=== PATIENT | female | born 1955 | race Caucasian/White ===

== ENCOUNTER 2017-08-24 14:46 | Inpatient (IN) | payer OTHER ==
[~2017-08-24] VITALS: Ht 157.5 cm; Wt 63.2 kg
[~2017-08-24 14:46] MED LIST: ACET-2619 PO; ATRN INH; CALC-46 PO; CHLOR MM; DOCU50SO1 GT; HEPA500056 SUBQ; LEVE100S PO; LEVO0.124 GT; MER500I IV; MULT5SOL7 GT; OMEP20EC6 GT; PRON INH; [UNRECOGNIZED DRUG - CODE] IV
[2017-08-24 15:05] VITALS: BP 132/52
--- NOTE | 2017-08-24 15:05 | NUR ---
PT BROUGHT TO ED FOR TACHYCARDIA AND PLACED ON CARESCAPE VENT SETTINGS AC 12 VT400 PEEP 5 FIO2 40% SXN LARGE AMT OF THICK WHITE SECRETIONS FOR C&S B\S ARE RHONCHI BILATERALLY PT IS TRACH WITH PORTEX 8 AND SKIN INTEGRITY IS INTACT, ALARMS ON AND FUNCTIONING PROPERLY AMBU BAG AT SIDE OF VENT AND VENT IS PLUGGED INTO RED OUTLET.PT IS AWAKE
[2017-08-24 15:09] VITALS: BP 132/52
--- NOTE | 2017-08-24 15:09 | NUR ---
Note undone in [facility] - 08/24/17 at 1826 by [email or web address] 62F [place] [facility] [place] WBC=42.2 WITH FEVERS. HX--CHRONIC RESP FAILURE, DM, G-TUBE, VENT DEPENDENT, QUADRAPLEGIC .AX--VANCOMYCIN. BED SORE AT [facility] PT ACT NEUROLOGIACL BASELINE. LUNGS CLEAR BL; PATIENT POSITIONED FOR COMFORT; HOB ELEVATED; BEDRAILS UP X2; BED DOWN. ER MADE AWARE OF PT STATUS. Addendum: 08/24/17 at 1738 by [email or web address] Amendment undone in [facility] - 08/24/17 at 182 by [email or web address] PT ON VENT FIO2 100, MV 9.6, PEEP 4, LACY 30, TV 422, RR 27.
[2017-08-24] MEDS ORDERED: ACETAMINOPHEN 650 MG SUPP RC ONE (16:01)
--- NOTE | 2017-08-24 16:06 | NUR ---
62F BIBA FROM [facility] FOR ABNORMAL LAB, WBC=42.2 WITH FEVERS. HX--CHRONIC RESP FAILURE, DM, G-TUBE, VENT DEPENDENT, QUADRAPLEGIC .AX--VANCOMYCIN. BED SORE AT [facility]. PT ACT NEUROLOGIACL BASELINE. LUNGS CLEAR BL; PATIENT POSITIONED FOR COMFORT; HOB ELEVATED; BEDRAILS UP X2; BED DOWN. ER MD MADE AWARE OF PT STATUS.
--- NOTE | 2017-08-24 16:06 | NUR ---
Note andrzejone in EDM - 08/24/17 at 1733 by [email or web address] MarcelinoF [place] [facility] [place] WBC=42.2 WITH FEVERS. HX--CHRONIC RESP FAILURE, DM, G-TUBE, VENT DEPENDENT, QUADRAPLEGIC .AX--VANCOMYCIN.
[2017-08-24 16:15] LABS: HEMOGLOBIN 11.1 g/dL (12.0-16.0); MEAN CORPUSCULAR HEMOGLOBIN 27 pg (27-31); MEAN CORPUSCULAR HGB CONC 33 g/dL (33-37); MEAN CORPUSCULAR VOLUME 82 fL (80-94); PLATELET COUNT (AUTO) 305 K/uL (140-450); RED BLOOD CELL COUNT(AUTO) 4.13 MIL/uL (4.20-5.40); RED CELL DISTRIBUTION WIDTH 15.3 % (11.6-13.7)
--- NOTE | 2017-08-24 16:16 | NUR ---
SNX PT LARGE AMT OF THICK WHITE SECRETIONS, INCREASED FIO2 TO 100% PT DESAT TO 85%
[2017-08-24 16:22] LABS: PROTHROMBIN TIME 11.6 secs (10.8-13.4)
[2017-08-24 16:27] LABS: WHITE BLOOD COUNT (AUTO) 33.1 K/uL (4.8-10.8)
[2017-08-24] MEDS ORDERED: cefTRIAXone 1,000 MG VIAL ONE (16:30)
[2017-08-24 16:34] VITALS: BP 120/81
--- NOTE | 2017-08-24 16:34 | NUR ---
VENT CHECK, SXN PT LARGE AMT OF WHITE SECRETIONS, B\S ARE RHONCHI AND AIRWAY IS PATENT
[2017-08-24 16:39] LABS: ALBUMIN 2.1 g/dL (3.4-5.0); ANION GAP 14.1 (8-16); CARBON DIOXIDE 29.2 mmol/L (21-32); CREATININE 1.4 mg/dL (0.6-1.3); POTASSIUM 5.3 mmol/L (3.5-5.1); TOTAL BILIRUBIN 0.3 mg/dL (0.0-1.0)
[2017-08-24 16:41] LABS: LYMPHOCYTES % (MANUAL) 4 % (20-46); MONOCYTES % (MANUAL) 3 % (5-12); MYELOCYTES % 1 % (0-0)
[2017-08-24] MEDS ORDERED: NACL 0.9% 1,000 ML IV ONE ×2 (17:05→19:45)
[2017-08-24 17:28] LABS: APPEARANCE,URINE SL CLOUDY (CLEAR); BILIRUBIN,URINE NEGATIVE (NEGATIVE); BLOOD, URINE 2+ (NEGATIVE); COLOR,URINE YELLOW (YELLOW); LEUKOCYTE ESTERASE ,URINE 3+ (NEGATIVE); NITRITE, URINE NEGATIVE (NEGATIVE); UGLUCOSE NEGATIVE (NEGATIVE)
[2017-08-24 17:37] LABS: RBC,URINE 11-20 (MOD) /HPF (0-5); WBC,URINE 80-100 /HPF (0-5)
[2017-08-24] MEDS ORDERED: ONDANSETRON 4 MG/2 ML VIAL IVP PRN (18:05)
[2017-08-24] MEDS ORDERED: ACETAMINOPHEN 325 MG TAB PO PRN (18:05)
[2017-08-24] MEDS ORDERED: HYDROcodone/APAP 7.5/325 MG 1 TAB PO PRN (18:05)
[2017-08-24 18:37] LABS: CHOL/HDL RATIO 3.9 (1-4.5); FREE T4 (FREE THYROXINE) 1.53 ng/dL (0.76-1.46); MAGNESIUM 2.1 mg/dL (1.8-2.4); THYROID STIMULATING HORMONE 0.17 uIU/mL (0.34-3.74)
--- NOTE | 2017-08-24 18:55 | NUR ---
Patient ON VENT ; appears to be resting comfortably in bed. Vital Signs within normal limits. Respirations even and unlabored.WILL CONTINUE TO MONITOR.
--- NOTE | 2017-08-24 19:09 | NUR ---
Patient will be admitted to care of DR AMADOR. Admited to TELE. Will go to [id number]. Belongings list completed. Report to VICTOR HUGO.
[2017-08-24 19:20] VITALS: BP 82/55
--- NOTE | 2017-08-24 19:20 | NUR ---
PT ARRIVED IN THE UNIT FROM ER VIA GURNEY, PT STABLE, NO DISTRESS NOTED, IV TO L HAND 24G SL, PT TRANSPORTED VIA AMBU BAG, PT ON VENT WITH FIO2 OF 40, GARCIA IN PLACE DRAINING YELLOW URINE WITH SEDIMENT, INITIAL ASSESSMENT DONE, ALL SAFETY PRECAUTION MET, WILL CONTINUE TO MONITOR.
--- NOTE | 2017-08-24 19:20 | NUR ---
TRANSFER PT VIA AMBU BAG FROM ER TO 123B, NO DISTRESS NOTED OR RESP DISTRESS NOTED
--- NOTE | 2017-08-24 20:05 | NUR ---
PT BP 82/55, PT ASYMPTOMATIC, NO DISTRESS NOTED, NOTIFIED DR. ROLDAN, WILL ORDER NS 1L BOLUS, WILL CONTINUE WITH ORDERS.
[2017-08-24] MEDS ORDERED: [UNRECOGNIZED DRUG - CODE] GT (20:28)
[2017-08-24] MEDS ORDERED: INSU100S45 SUBQ (20:28)
[2017-08-24] MEDS ORDERED: ASPI81CT89 GT (20:28)
[2017-08-24] MEDS ORDERED: ATI.5 GT (20:28)
[2017-08-24] MEDS ORDERED: POTA10TE30 GT (20:28)
[2017-08-24] MEDS ORDERED: METO25TA GT (20:28)
[2017-08-24] MEDS ORDERED: LORazepam 0.5 MG TAB GT PRN (20:30)
[2017-08-24] MEDS ORDERED: DEXTROSE 50% 50 ML SYR IVP PRN (20:35)
[2017-08-24] MEDS: NYSTATIN POW 100 MU/GM 15 GM BTL TP SCH (21:00)
[2017-08-24] MEDS ORDERED: SODIUM POLYSTYRENE 15 GM/60 ML UDBTL GT SCH (21:00)
[2017-08-24] MEDS ORDERED: METOPROLOL 25 MG TAB GT SCH (21:00)
[2017-08-24] MEDS ORDERED: DOCUSATE SODIUM 100 MG GELCAP PO SCH (21:00)
[2017-08-24] MEDS ORDERED: ALBUTEROL SULFATE/IPRATROPIU 3 ML SOL IH PRN (21:10)
[2017-08-24] MEDS: FAMOTIDINE 20 MG/2 ML VIAL IV SCH (21:22)
[2017-08-24] MEDS: levETIRAcetam 100 MG/ML ORASYR GT SCH (21:24)
[2017-08-24 21:35] VITALS: BP 104/52
--- NOTE | 2017-08-24 21:35 | NUR ---
RECHECKED BP, BP 104/52 AT THIS MOMENT, PT STABLE, NO DISTRESS NOTED, CALL LIGHT WITHIN REACH, WILL CONTINUE TO MONITOR.
[2017-08-24] MEDS: BLOOD GLUCOSE MONITORING 1 DEV DEV FS SCH (21:39)
--- NOTE | 2017-08-24 22:27 | NUR ---
PT PO2 86%, PT ASYMPTOMATIC, CALM, ATTEMPT TO SUCTION, NO CHANGES, CALLED RT TO NOTIFY PT CONDITION, RT STATED THAT HE WILL COME TO CHECK ON THE PT.
--- NOTE | 2017-08-24 22:30 | NUR ---
CALLED BY NURSE SAO2 86% CHANGED PULSE OX FINGER PROBE,LAVAGED WITH SALINE AND SUCTIONED, INCREASED FIO2 TO 60% SAO2 -97% . WILL KEEP FIO2 At 60% DURING THE NIGHT
[2017-08-24] MEDS: NACL 0.9% 1,000 ML IV SCH (22:45)
[2017-08-24] MEDS: LEVOFLOXACIN 750 MG/D5W PREMIX 150 ML IV SCH (22:51)
[2017-08-25] VITALS: BP 133/59
--- NOTE | 2017-08-25 00:30 | NUR ---
NOTIFIED DR ROLDAN REGARDING PT HR 140, DR STATED UNDERSTANDING. PT STABLE, NO DISTRESS NOTED, WILL CONTINUE TO MONITOR.
[2017-08-25] MEDS ORDERED: CLINDAMYCIN 600 MG/4 ML VIAL ONE ×2 (01:12→05:20)
[2017-08-25] MEDS: CLINDAMYCIN 600 MG in DEXTROSE 5% 50 ML IV SCH ×4 (01:14→18:44)
[2017-08-25] MEDS: ACETAMINOPHEN 325 MG SUPP RC PRN (01:14)
--- NOTE | 2017-08-25 01:14 | NUR ---
CHECKED PT TEMP, 101.4, TYLENOL GIVEN, PT TOLERATED WELL, PO2 AT 86%, SUCTIONED PT AND CALLED RT, PT CALM NO DISTRESS NOTED, CALL LIGHT WITHIN REACH WILL CONTINUE TO MONITOR.
--- NOTE | 2017-08-25 01:46 | NUR ---
PT DESAT. TO 85%, INCREASED FIO3 TO 80%
[2017-08-25] MEDS: NACL 0.9% 1,000 ML IV SCH ×3 (02:00→18:47)
--- NOTE | 2017-08-25 02:11 | NUR ---
RECHECKED PT TEMP 99.6, PT STABLE, NO DISTRESS NOTED, CALL LIGHT WITHIN REACH, WILL CONTINUE TO MONITOR.
[2017-08-25 04:00] VITALS: BP 101/75
--- NOTE | 2017-08-25 04:28 | NUR ---
CHECKED ON PT, PT PO2 SAT 87%, NOTIFY RT, NO DISTRESS NOTED, WILL CONTINUE TO MONITOR.
--- NOTE | 2017-08-25 04:30 | NUR ---
SAO2 DECREASED TO 87%, INCREASED FIO2 TO 100% SUCTIONED/LAVAGED SMALL AMTS OF YELLOW SECRETIONS. DR. ROLDAN IS MADE AWARE
[2017-08-25] MEDS: LEVOTHYROXINE 0.1 MG TAB GT SCH (05:43)
[2017-08-25] MEDS: LEVOTHYROXINE 0.025 MG TAB GT SCH (05:43)
[2017-08-25 06:28] LABS: HEMATOCRIT 28.7 % (36-48); HEMOGLOBIN 9.5 g/dL (12.0-16.0); MEAN CORPUSCULAR HEMOGLOBIN 27 pg (27-31); MEAN CORPUSCULAR HGB CONC 33 g/dL (33-37); MEAN CORPUSCULAR VOLUME 82 fL (80-94); PLATELET COUNT (AUTO) 203 K/uL (140-450); RED BLOOD CELL COUNT(AUTO) 3.48 MIL/uL (4.20-5.40); RED CELL DISTRIBUTION WIDTH 15.2 % (11.6-13.7); WHITE BLOOD COUNT (AUTO) 23.2 K/uL (4.8-10.8)
[2017-08-25] MEDS ORDERED: LEVOTHYROXINE 0.075 MG TAB GT SCH (06:30)
[2017-08-25] MEDS: BLOOD GLUCOSE MONITORING 1 DEV DEV FS SCH ×4 (06:56→21:08)
[2017-08-25] MEDS: ALBUTEROL SULFATE/IPRATROPIU 3 ML SOL IH SCH ×3 (07:07→19:04)
--- NOTE | 2017-08-25 07:07 | NUR ---
RECEIVED PT ON CARESCAPE ON AC 12 VT400 PEEP5 FIO2 100 ALARMS ARE ON AND FUNCTIONAL BMV HOB PTS TRACH PORTEX 8 IS SECURE PT IN HF QUIET BS COARSE I\ LAVAGE AND SX COPIOUS WHITE HHN GIVEN WITH NEW SET UP WITH 3 MG DUONEB CONT POX IN PLACE NO APPARENT DISTRESS VENT PLUGGED INTO RED OUTLET
--- NOTE | 2017-08-25 07:20 | NUR ---
ENDORSED PT TO DAY SHIFT NURSE GONZALO OROPEZA, PT STABLE, NO DISTRESS NOTED, CALL LIGHT WITHIN REACH.
--- NOTE | 2017-08-25 07:21 | NUR ---
RECEIVED REPORT FROM SPUD SORTER NURSE AT BEDSIDE FOR CONTINUITY OF CARE. PATIENT WITH MECHANICAL VENT FIO2 SET AT 100%, RESPIRATIONS AT 25, TRACH TO VENT WITH DRY DRESSING WITHOUT NOTABLE DRAINAGE. GTUBE PATENT AND INTACT. NO RESIDUAL. AUSCULTATED FOR PLACEMENT. PATIENT NOTED WITH NON PITTING EDEMA TO BUE AND BLE. PATIENT WITH IV TO RIGHT AC 24G WITH NS @126CC/HR. PATIENT DOES NOT CURRENTLY HAVE A FEEDING FORMULA AWAITING MD ORDER. PT ON CONTACT ISOLATION FOR MDRO, PATIENT APHASIC. WITH EYES OPEN. HOLD RIGHT ARM TIGHT AGAINST BODY. PATIENT WITH FC. DRAINING YELLOW URINE WITH SOME CLOUDINESS. SPUD SORTER NURSE REPORTED LBM1/. PER SPUD SORTER NURSE PATIENT HAS PRESSURE ULCERS TO SACRAL AREA WITH DRESSING. PT WITH SCDS IN PLACE. WILL CONT TO MONITOR
[2017-08-25 07:36] LABS: PHOSPHORUS 2.9 mg/dL (2.5-4.9)
[2017-08-25 07:57] LABS: ANION GAP 13.7 (8-16); CARBON DIOXIDE 28.3 mmol/L (21-32)
[2017-08-25 08:00] VITALS: BP 114/61
[2017-08-25 08:30] LABS: LYMPHOCYTES % (MANUAL) 6 % (20-46); MONOCYTES % (MANUAL) 3 % (5-12)
[2017-08-25] MEDS: DOCUSATE 100 MG/10 ML UDC GT SCH ×2 (08:55→21:10)
[2017-08-25] MEDS: METOPROLOL 50 MG TAB GT SCH ×2 (08:56→21:00)
[2017-08-25] MEDS: CALCIUM CARB/VIT-D 500 MG/200 IU 1 TAB GT SCH (08:56)
[2017-08-25] MEDS: LACTOBACILLUS RHAMNOSUS GG 1 EACH CAP PO SCH (08:56)
--- NOTE | 2017-08-25 08:56 | NUR ---
VENT CHECK, NO SXN REQUIRED AT THIS TIME, AIRWAY IS PATENT AND PT IS RESTING
[2017-08-25] MEDS: ASPIRIN 81 MG TAB.CHEW GT SCH (08:57)
[2017-08-25] MEDS: MULTIVITAMIN 5 ML ORASYR GT SCH (08:57)
[2017-08-25] MEDS: levETIRAcetam 100 MG/ML ORASYR GT SCH ×2 (08:58→21:10)
[2017-08-25] MEDS ORDERED: POTASSIUM CHLORIDE 20% 40 MEQ/15 ML UDC GT SCH (09:00)
--- NOTE | 2017-08-25 09:06 | NUR ---
ADMINISTERED MORNING MEDS. CHECKED FOR PLACEMENT, RESIDUAL, AND PATENCY. TOTAL FLUIDS INCLUDING MEDS AND FLUSH 240ML. PT TOLERATED WELL. SUCTIONED PT. PT FOAMING AT THE MOUTH. ADMINISTERED PUMP FOR THE WOUND CARE BED. WILL CONTINUE TO MONITOR PT.
[2017-08-25] MEDS: HYDRAGUARD CREAM TP SCH (09:33)
[2017-08-25] MEDS: NYSTATIN POW 100 MU/GM 15 GM BTL TP SCH ×2 (09:34→21:00)
--- NOTE | 2017-08-25 10:39 | NUR ---
RADIOLOGIST AT BEDSIDE. PATIENT AWAKE WITH EYES OPENED. NO ACUTE DISTRESS NOTED. FLACC 0. NO FACIAL GRIMACING. WILL CONT TO MONITOR
--- NOTE | 2017-08-25 10:46 | NUR ---
snx pt moderate amt of white secretions, changed water Addendum: 08/25/17 at 1046 by Katalina Smith RT wrong pt
--- NOTE | 2017-08-25 11:18 | NUR ---
DECREASE FIO2 TO 80 SPO2 99
[2017-08-25 12:00] VITALS: BP 98/59
--- NOTE | 2017-08-25 13:08 | NUR ---
vent check, i\l tx given with duoneb 3ml with no adverse reaction post tx b\s coarse and sxn pt small amt of white secretions pt is resting
--- NOTE | 2017-08-25 13:55 | NUR ---
PT DESAT TO 82 INCREASE FIO2 TO 100 SX LG WHITE
--- NOTE | 2017-08-25 14:44 | NUR ---
08/25/2017 RD INITIAL ASSESSMENT COMPLETED PLEASE REFER TO NUTRITION ASSESSMENT UNDER CARE ACTIVITY FOR ESTIMATED NUTRITIONAL NEEDS. CONSIDER: FIBERSOURCE HN @ 60 ML/HR FROM NOON TO 8AM. THIS WILL PROVIDE 1440 KCALS AND 65 GM PRO/DAY TO MEET 100% ESTIMATED ENERGY AND PROTEIN NEEDS . RD TO FOLLOW-UP IN 2-3 DAYS PATIENT IS HIGH RISK. GRZEGORZ [address]ERSON RD Addendum: 08/25/17 at [address] SPOKE WITH DR. FIELDS, DISCUSSED RECOMMENDATION TO INCREASE TF RATE, DR. FIELDS STATED HE WILL UPDATE DIET ORDER
--- NOTE | 2017-08-25 15:10 | NUR ---
vent check no sxn needed at this time airway is patent and pt is sleeping
--- NOTE | 2017-08-25 15:13 | NUR ---
DR. FIELDS CANCELLED THE VQ SCAN. THE HUMAN FACTORS ADVISOR LEAD WAS HERE AND REALIZED PT WAS ON A VENT. CALLED R/T TO ASSIST WITH TRANSFER TO [facility]. PT IS UNABLE TO KEEP ARMS UP ABOVE HER HEAD D/T TO THE CONTRACTION OF R ARM. AGREED THAT IT OK TO CANCEL.
[2017-08-25 16:00] VITALS: BP 118/49
--- NOTE | 2017-08-25 16:31 | NUR ---
Steel Die Engraver Note: I call [facility] and spoke to Ramona about patient family contact, gather information, and provided update on patients status. Per Ramona Patient is on a [facility]; and will be able to return to [facility] facility when patient is clear and stable. I thank Ramona (staff) and ended call.
--- NOTE | 2017-08-25 16:35 | NUR ---
REQUESTED FEEDING PUMP FROM [employer]. STARTED TUBE FEEDING. FIBERSOURCE 45ML/HR TO START, FLUSH H20 325ML Q 6 HRS. PER ORDERS, WILL CHECK IN 1 HR FOR RESIDUAL TO SEE IF PT IS TOLERATING WELL.
--- NOTE | 2017-08-25 16:53 | NUR ---
VENT CHECK, SXN PT MODERATE AMT OF YELLOW SECRETIONS TRACH CARE DONE: CHANGED TRACH GAUZE
--- NOTE | 2017-08-25 18:49 | NUR ---
CHECKED GTUBE RESIDUAL AND PULLED BACK 30ML UNTIL RESISTANCE WAS MET.PATIENT WITH EYES OPEN. APHASIC. NO ACUTE DISTRESS NOTED. FLACC OF 0. WILL CONT TO MONITOR
--- NOTE | 2017-08-25 19:16 | NUR ---
RECEIVED PT STABLE ON VENT SUPPORT AT DOCUMENTED SETTINGS, SUCTIONED MODERATED AMOUNTS OF CREAMY YELLOW THICK SECRETIONS, HHN TX GIVEN, TOLERATED WELL, NO RESP DISTRESS OR SOB NOTED AT THIS TIME, PORTEX 8 TRACH SECURED/MIDLINE/PATENT, ALARMS SET AND AUDIBLE, CONT PULSE OX ON, AMBU BAG AT BEDSIDE, VENT PLUGGED INTO RED OUTLET, WILL CONT TO MONITOR.
--- NOTE | 2017-08-25 19:18 | NUR ---
ENDORSED REPORT TO CHIEF TECHNICIAN X RAY NURSE FOR CONTINUITY OF CARE.
--- NOTE | 2017-08-25 19:19 | NUR ---
RECEIVED BEDSIDE REPORT FROM DAY SHIFT NURSE KAVEH RN, PT STABLE, NO DISTRESS NOTED, IV TO L WRIST 24G RUNNING NS @126ML/HR, INFUSING WELL, PT ON TRACHE TO VENT, NO SOB NOTED, O2 SATURATION AT 98%, GARCIA IN PLACE DRAINING YELLOW URINE WITH SEDIMENTS, DRESSING IN PLACE, INITIAL ASSESSMENT DONE, ALL SAFETY PRECAUTION MET, WILL CONTINUE TO MONITOR.
[2017-08-25 20:00] VITALS: BP 109/51
[2017-08-25] MEDS: FAMOTIDINE 20 MG/2 ML VIAL IV SCH (21:10)
--- NOTE | 2017-08-25 21:10 | NUR ---
DUE MEDICATION GIVEN, PT TOLERATED WELL, NO DISTRESS NOTED, CALL LIGHT WITHIN REACH, WILL CONTINUE TO MONITOR.
--- NOTE | 2017-08-25 23:10 | NUR ---
CHECKED ON PT, REPOSITIONED PT, PT TOLERATED WELL, NO DISTRESS NOTED, CALL LIGHT WITHIN REACH,
[2017-08-26] VITALS (14 sets, daily range): BP systolic 0–137; BP diastolic 0–79
[2017-08-26] MEDS: CLINDAMYCIN 600 MG in DEXTROSE 5% 50 ML IV SCH ×5 (00:06→23:30)
--- NOTE | 2017-08-26 00:06 | NUR ---
DUE MEDICATION GIVEN, PT TOLERATED WELL, NO DISTRESS NOTED, CALL LIGHT WITHIN REACH, WILL CONTINUE TO MONITOR.
[2017-08-26] MEDS: NACL 0.9% 1,000 ML IV SCH ×3 (01:58→17:24)
--- NOTE | 2017-08-26 02:10 | NUR ---
ADVANCED G TUBE FEEDING TO 60 ML/HR PT TOLERATED WELL, RESIDUAL 5ML.
[2017-08-26] MEDS: ACETAMINOPHEN 325 MG SUPP RC PRN (03:53)
--- NOTE | 2017-08-26 03:53 | NUR ---
PT TEMP 101.5, TYLENOL PRESCRIBED GIVEN, PT TOLERATED WELL, WILL CHECK TEMP IN HALF AN HOUR
--- NOTE | 2017-08-26 04:23 | NUR ---
RECHECKED PT TEMPERATURE, 99.0, PT RESTING, NO DISTRESS NOTED, CALL LIGHT WITHIN REACH, WILL CONTINUE TO MONITOR.
[2017-08-26] MEDS: LEVOTHYROXINE 0.1 MG TAB GT SCH (05:52)
[2017-08-26] MEDS: LEVOTHYROXINE 0.025 MG TAB GT SCH (05:52)
--- NOTE | 2017-08-26 05:52 | NUR ---
DUE MEDICATION GIVEN, PT TOLERATED WELL, NO DISTRESS NOTED, CALL LIGHT WITHIN REACH, WILL CONTINUE TO MONITOR.
[2017-08-26] MEDS: BLOOD GLUCOSE MONITORING 1 DEV DEV FS SCH ×4 (06:04→20:57)
[2017-08-26 06:11] LABS: HEMATOCRIT 23.4 % (36-48); HEMOGLOBIN 7.5 g/dL (12.0-16.0); MEAN CORPUSCULAR HEMOGLOBIN 27 pg (27-31); MEAN CORPUSCULAR HGB CONC 32 g/dL (33-37); MEAN CORPUSCULAR VOLUME 84 fL (80-94); PLATELET COUNT (AUTO) 172 K/uL (140-450); RED CELL DISTRIBUTION WIDTH 15.6 % (11.6-13.7); WHITE BLOOD COUNT (AUTO) 14.3 K/uL (4.8-10.8)
[2017-08-26 06:21] LABS: ANION GAP 11.8 (8-16); CARBON DIOXIDE 28.6 mmol/L (21-32); CREATININE 0.8 mg/dL (0.6-1.3)
[2017-08-26 06:22] LABS: POTASSIUM 2.4 mmol/L (3.5-5.1)
--- NOTE | 2017-08-26 06:25 | NUR ---
RECEIVED CRITICAL VALUE REPORT OF POTASSIUM 2.4, CALLED , STATED UNDERSTANDING, WILL COME AND SEE THE PATIENT AND PUT IN ORDERS LATER.
[2017-08-26 06:49] LABS: LYMPHOCYTES % (MANUAL) 8 % (20-46)
[2017-08-26 06:50] LABS: EOSINOPHILS % (MANUAL) 3 % (0-4); MONOCYTES % (MANUAL) 4 % (5-12)
--- NOTE | 2017-08-26 07:14 | NUR ---
ENDORSED PLAN OF CARE TO DAY SHIFT NURSE CABRERA RN, PT STABLE, NO DISTRESS NOTED, CALL LIGHT WITHIN REACH.
--- NOTE | 2017-08-26 07:15 | NUR ---
REPORT RECIEVED FROM CAMPUS RECEPTIONIST NURSE, PT WITH EYES OPEN, DOES NOT RESPOND VERBALLY AT BASE LINE, PT APPEARS COMFORTABLE IN NO PAIN, RESP EVEN UNLABORED WITH TRACH TO VENT, SKIN WARM DRY COLOR WNL, O2 SAT 96-96%, IVF INFUSING WELL, SITE WNL, GT FEEDING ONGOING, PLAN OF CARE REVIEWED, SIDE RAILS UP, BED LOCKED IN LOW POSITION, ALL ALARMS ON, WILL CONTINUE TO MONITOR.
[2017-08-26] MEDS: ALBUTEROL SULFATE/IPRATROPIU 3 ML SOL IH SCH ×3 (07:58→19:15)
--- NOTE | 2017-08-26 07:58 | NUR ---
RECEIVED ON A [employer] USSCAPE R860 VENTILATOR PLUGGED INTO RED OUTLET TOLERATING WELL WITHOUT ADVERSE REACTIONS NOTED TO A PORTEX DCT #8 AIRWAY CUFF PRESSURE CHECKED NOTED AMBU BAG NOTED AT HOB LOC AWAKE NO PULMONARY DISTRESS NOTED BREATH SOUNDS RHONCHI BILATERAL GOOD CHEST RISE DEP TRACHEAL SUCTION FOR LARGE THICK YELLOW SECRETIONS AIRWAY PATENT
[2017-08-26] MEDS ORDERED: KCL 20 MEQ/WATER INJ PREMIX 200 ML IV SCH (08:00)
--- NOTE | 2017-08-26 08:45 | NUR ---
RT AT BEDSIDE.
--- NOTE | 2017-08-26 08:50 | NUR ---
WOUND CARE EVALUATION NOTE: REASON FOR EVALUATION: PRESSURE ULCER INJURY STAGE 2 COMPLETE SKIN ASSESSMENT DONE ON THIS 62 Y/O FEMALE PATIENT [place] [facility] [place] [facility], WITH INITIAL DIAGNOSIS OF FEVER AND LEUKOCYTOSIS. PAST MEDICAL HISTORY INCLUDE GUADRIPLEGIA, CHRONIC RESPIRATORY FAILURE, COPD AND DM. ALL ABOVE INFORMATION OBTAINED FROM THE ADMISSION H&P. LABS ARE WBC 23.2, H/H 9.5/28.7, GLUCOSE 175 AND ALBUMIN 2.1. SKIN WARM TO TOUCH WNL, SKIN TURGOR GOOD. CAPILLARY REFILLED <3 SEC. TOENAILS ARE SHORT AND THICKENED, NO HAIR GROWTH, BILATERAL DORSAL PEDAL PULSES PRESENT. INITIAL PLAN OF CARE DISCUSSED WITH PRIMARY RN. INTEGUMENTARY: TRACH IN PLACE, NANI STOMA SKIN DRY AND INTACT RUQ GT IN PLACE, NANI STOMA SKIN DRY AND INTACT MID ABDOMEN OLD HEALED SCAR, L/R MEDIAL KNEE OLD HEALED SCARS SACRALCOCCYX PRESSURE ULCER INJURY STAGE 2, 2X1X0.1, WOUND BED DRY AND PINK IN COLOR, PERIWOUND PALE PINK RE-EPITHELIUM TISSUE DRY AND CLEAN. BILATERAL LOWER EXTREMITIES -DRYNESS LEFT AND RIGHT HEELS- BLANCHABLE REDNESS RECOMMENDATIONS: -CLEANSE SACRALCOCCYX WITH SOAP AND WATER, PAT DRY, APPLY HYDROGEL TO WOUND BED AND HYDROGUARD TO NANI WOUND, COVER WITH DRY DRESSING QD AND PRN IF SOILING -TURN AND REPOSITION PATIENT Q 2H -ASSESS AND MONITOR SKIN CONDITION DURING POSITION CHANGE, PLEASE PAY PARTICULAR ATTENTION HEELS -OFFLOAD BILATERAL HEELS BY PLACING PILLOWS UNDER CALVES AT ALL TIMES, UNLESS OTHERWISE CONTRAINDICATED -PRESSURE REDISTRIBUTION SURFACE THERAPY -KEEP SKIN CLEAN AND DRY AT ALL TIMES. MAY APPLY BODY LOTION TO DRYNESS AREA. RECOMMENDATIONS DISCUSSED WITH PRIMARY RN AND DR. RAMOS WILL FOLLOW UP PATIENT Q7- 10 DAYS AND PRN. PLEASE CONTACT WOUND CARE NURSE FOR ANY CONCERNS, QUESTIONS AND CHANGES IN SKIN CONDITION.
--- NOTE | 2017-08-26 09:06 | NUR ---
AWAKE STABLE NO SOB NOTED BREATH SOUNDS RHONCHI BILATERAL WITH GOOD CHEST RISE DEEP TRACHEAL SUCTION FOR LARGE THICK YELLOW SECRETIONS AIRWAY PATENT OROPHARYNX SUCTION FOR LARGE THICK PALE YELLOW TO CLEAR SECRETIONS Addendum: 08/26/17 at 0920 by Bridger Blanco RT SATURATION 99% ON FIO2 OF 60% TITRATED FIO2 TO 50% CABRERA/JOHNNA NOTIFIED
[2017-08-26] MEDS: DOCUSATE 100 MG/10 ML UDC GT SCH ×2 (09:26→20:57)
[2017-08-26] MEDS: LACTOBACILLUS RHAMNOSUS GG 1 EACH CAP PO SCH (09:26)
[2017-08-26] MEDS: MULTIVITAMIN 5 ML ORASYR GT SCH (09:27)
[2017-08-26] MEDS: ASPIRIN 81 MG TAB.CHEW GT SCH (09:28)
[2017-08-26] MEDS: METOPROLOL 50 MG TAB GT SCH ×2 (09:28→20:58)
[2017-08-26] MEDS: levETIRAcetam 100 MG/ML ORASYR GT SCH ×2 (09:28→20:58)
[2017-08-26] MEDS: HYDRAGUARD CREAM TP SCH (09:29)
[2017-08-26] MEDS: NYSTATIN POW 100 MU/GM 15 GM BTL TP SCH ×2 (09:29→21:15)
[2017-08-26] MEDS: CALCIUM CARB/VIT-D 500 MG/200 IU 1 TAB GT SCH (09:29)
--- NOTE | 2017-08-26 09:35 | NUR ---
RESIDUAL 3ML, AM MEDS GIVEN VIA G TUBE, SHAHIDA WELL, BED BATH GIVEN WITH 4TH GRADE MATH TEACHER SOLA, PERICARE DONE, POSITION CHANGED, FANI WOUND CARE NURSE AT BEDSIDE, DRESSING CHANGED, WILL CONTINUE TO MONITOR
--- NOTE | 2017-08-26 11:20 | NUR ---
AWAKE STBALE NO EVIENDCE OF PULMONARY DISTRESS NOTED BREATH SOUNDS RHONCHI BILATERAL GOOD CHEST RISE DEEP TRACHEAL SUCTION FOR MODERATE THICK YELLOW SECRETIONS AIRWAY PATENT
--- NOTE | 2017-08-26 11:40 | NUR ---
SATURATION 100% ON FIO2 OF 50% TITRATED FIO2 TO 40% CABRERA/RN NOTIFIED
--- NOTE | 2017-08-26 12:29 | NUR ---
NO EVIDENCE OF RESPIRATORY DISTRESS NOTED BREATH SOUNDS RHONCHI RIGHT SIDE TO CLEAR LEFT SIDE GOOD CHEST RISE DEEP TRACHEAL SUCTION FOR SMALL SEMI THICK YELLOW SECRETIONS AIRWAY PATENT MASIMO RADICAL-7 CONTINUOS PULSE OXIMTERY AT BEDSIDE ON AND FUNCTIONING WELL LOW SATURATION ALARM SET AT 92%
--- NOTE | 2017-08-26 14:05 | NUR ---
PT SLEEPING QUIELTY IN NAD, REDSP EVEN UNLABORED, SKIN WRM DRY COLRO WNL, IV SITE RETAPED, FLUSHES WELL, SITE WNL, IVF CONTINUES, GT FEED ON-GOING, GARCIA DRAINING WELL, POSITION CHAGNED, PERICARE DONE, WILL CONTINUE TO MONTIOR.
[2017-08-26 14:49] LABS: TRANSFERRIN 129 mg/dL (200 - 370)
[2017-08-26 15:13] LABS: FOLIC ACID > 20.00 ng/mL (>3.0)
--- NOTE | 2017-08-26 15:22 | NUR ---
AWAKE STABLE NO DISTRESS NOTED BREATH SOUNDS RHONCHI BILATERAL WITH GOOD CHEST RISE DEEP TRACHEAL SUCTION FOR MODERATE THIN YELLOW SECRETIONS AIRWAY PATENT SATURATION 100% ON FIO2 OF 40% TITRATED FIO2 TO 35% CABRERA/RN NOTIFIED
[2017-08-26 15:36] LABS: FERRITIN 299 ng/mL (15-150)
--- NOTE | 2017-08-26 17:02 | NUR ---
LEFT HAND IV LEAKING, DIFFICULT TO FLUSH, DC'D, CATH TIP INTACT, NEW IV 22G STARTED TO LFT FA, PT SHAHIDA WELL, FLUSHES WELL, SITE DRESSED AND SECURED, IVF RESUMED.
--- NOTE | 2017-08-26 17:54 | NUR ---
ASLEEP RESTING COMFORTABLY NO EVIDENCE OF PULMONARY DISTRESS NOTED GOOD CHEST RISE
[2017-08-26] MEDS ORDERED: FERRIC GLUCONATE 125 MG in NACL 0.9% 100 ML IV SCH (18:00)
--- NOTE | 2017-08-26 18:04 | NUR ---
SMALL BM, PERICARE DONE, POSITION CHANGED, PT SHAHIDA WELL, IV ANTIBIOTIC INFUSING, SITE CLEAR, WILL CONTINUE TO MONTIOR
--- NOTE | 2017-08-26 19:15 | NUR ---
REPORT GIVEN TO ACID SUPERVISOR NURSE, PT IN STABLE CONDITION.
--- NOTE | 2017-08-26 19:25 | NUR ---
RECEIVED PT IN STABLE CONDITION FROM AM NURSE. ON TELE MONITOR. BEDBOUND, APHASIC. ON TRACH TO VENT. O2SAT 98% ON FIO2 35%. RT JUST GAVE BREATHING TREATMENT. NO DISTRESS NOTED. ON CONTACT ISOLATION. WITH IVF INFUSING WELL ON THE LT FA #[id number]. CLEAR AND PATENT. HAS GT FEEDING . DISCONNECTED FROM THE TUBE. PT WAS CLEANED AND BED CHANGED. FEEDING CONTINUE AFTER CHECKED PLACEMENT. HAS GARCIA CATHETER TO GRAVITY, DRAINING WELL WITH CLEAR YELLOW URINE. SACRAL WOUND AREA WITH DRESSING,IN PLACED. BED ON LOW POSITION, FREQUENT ROUNDS NEEDED.HIGHWAY MAINTENANCE SUPERVISOR RAILS PADDED FOR SEIZURE PRECAUTION. WILL CLOSELY MONITOR PT.
[2017-08-26] MEDS: FAMOTIDINE 20 MG/2 ML VIAL IV SCH (20:57)
--- NOTE | 2017-08-26 20:57 | NUR ---
BLOOD SUGAR WAS CHECKED RESULT 127. NO INSULIN COVERAGE NEEDED.
[2017-08-26] MEDS: LEVOFLOXACIN 750 MG/D5W PREMIX 150 ML IV SCH (21:03)
--- NOTE | 2017-08-26 21:30 | NUR ---
PT IN NO DISTRESS NOTED. O2 SAT 97%. WILL CONTINUE TO MONITOR.
--- NOTE | 2017-08-26 22:30 | NUR ---
PT IN NO ACUTE RESPIRATORY DISTRESS NOTED. O2 SAT 98% AT THIS TIME. WILL CONTINUE TO MONITOR.
--- NOTE | 2017-08-26 23:40 | NUR ---
SUCTIONED PT'S MOUTH . OBTAINED SMALL AMOUNT SALIVA. MOUTH CARE DONE. NO DISTRESS NOTED. O2 SAT 97%.
--- NOTE | 2017-08-27 00:30 | NUR ---
REPOSITIONED PT FOR COMFORT. NO RESPIRATORY DISTRESS NOTED. WILL CONTINUE TO MONITOR.
[2017-08-27] MEDS: NACL 0.9% 1,000 ML IV SCH ×4 (01:42→23:09)
--- NOTE | 2017-08-27 02:30 | NUR ---
REPOSITIONED FOR COMFORT. SUCTIONED WITH MODERATE WHITISH /CREAMY SECRETIONS OBTAINED.
[2017-08-27 04:00] VITALS: BP 138/71
--- NOTE | 2017-08-27 04:30 | NUR ---
PT AWAKE. WITH A LOT OF SALIVA IN MOUTH. SUCTIONED THRU THE MOUTH AND ALSO THRU THE TRACH. O2 SAT 100% AFTER SUCTIONING.
[2017-08-27] MEDS: CLINDAMYCIN 600 MG in DEXTROSE 5% 50 ML IV SCH (05:24)
[2017-08-27] MEDS: LEVOTHYROXINE 0.025 MG TAB GT SCH (05:46)
[2017-08-27] MEDS: LEVOTHYROXINE 0.1 MG TAB GT SCH (05:47)
[2017-08-27] MEDS: BLOOD GLUCOSE MONITORING 1 DEV DEV FS SCH ×4 (05:56→20:39)
[2017-08-27 06:05] LABS: BASOPHILS % (AUTO) 0.3 % (0.0-2.0); EOSINOPHILS # (AUTO) 0.2 K/uL (0-0.4); EOSINOPHILS % (AUTO) 1.6 % (0.0-4.0); HEMATOCRIT 24.5 % (36-48); HEMOGLOBIN 7.7 g/dL (12.0-16.0); LYMPHOCYTES % (AUTO) 8.8 % (20.5-51.1); MEAN CORPUSCULAR HEMOGLOBIN 26 pg (27-31); MEAN CORPUSCULAR HGB CONC 31 g/dL (33-37); MEAN CORPUSCULAR VOLUME 83 fL (80-94); MONOCYTES # (AUTO) 0.9 K/uL (0.8-1.0); MONOCYTES % (AUTO) 7.5 % (1.7-9.3); NEUTROPHILS # (AUTO) 9.3 K/uL (1.8-7.7); NEUTROPHILS % (AUTO) 81.8 % (42.2-75.2); PLATELET COUNT (AUTO) 180 K/uL (140-450); RED BLOOD CELL COUNT(AUTO) 2.97 MIL/uL (4.20-5.40); RED CELL DISTRIBUTION WIDTH 15.4 % (11.6-13.7)
--- NOTE | 2017-08-27 06:21 | NUR ---
BLOOD SUGAR THIS AM WAS CHECKED RESULT 124. NO INSULIN COVERAGE NEEDED.
[2017-08-27 06:25] LABS: ANION GAP 10.3 (8-16); CARBON DIOXIDE 30.2 mmol/L (21-32); CREATININE 0.7 mg/dL (0.6-1.3)
[2017-08-27 06:31] LABS: MAGNESIUM 1.5 mg/dL (1.8-2.4); PHOSPHORUS 1.5 mg/dL (2.5-4.9)
[2017-08-27 06:34] LABS: POTASSIUM 2.5 mmol/L (3.5-5.1)
[2017-08-27] MEDS: ALBUTEROL SULFATE/IPRATROPIU 3 ML SOL IH SCH ×3 (06:48→18:37)
[2017-08-27 07:17] LABS: WHITE BLOOD COUNT (AUTO) 11.4 K/uL (4.8-10.8)
--- NOTE | 2017-08-27 07:20 | NUR ---
ENDORSED PT IN STABLE CONDITION TO AM NURSE.
--- NOTE | 2017-08-27 07:21 | NUR ---
RECEIVED REPORT FROM CELLOPHANE WORKER NURSE PEYTON AT BEDSIDE FOR CONTINUITY OF CARE. PT IS AWAKE AND APHASIC. INTRODUCED SELF AND UPDATED BOARD. ON VENT. O2 SAT 98%. IV TO L FA 22G INTACT WITHNS @126ML/HR. SKIN WARM AND DRY. G-TUBE SITE INTACT WITH FEEDING AT 60ML/HR FIBERSOURCE. NO SIGNS OF DISTRESS. BED IN LOW POSITION, WHEELS LOCKED, HOB 30 DEGREES. WILL CONTINUE TO MONITOR.
--- NOTE | 2017-08-27 07:26 | NUR ---
RECIVED PT ON VENT WITH SETTINGS CHARTED BREATH SOUNDS PRESENT BILAT COARSE SXN PT WITH MOD AMT OFF WHITE SECS TRACH SECURE AMBU BAG AT BEDSIDE VENT PLUGGED INTO RED OUTLET WILL CONTINUE TO MONITOR PT ON VENT
[2017-08-27] MEDS ORDERED: PIPER/TAZO 3.375GM/D5W PREMIX 50 ML IV SCH (07:46)
[2017-08-27 08:00] VITALS: BP 132/62
[2017-08-27] MEDS: DOCUSATE 100 MG/10 ML UDC GT SCH ×2 (08:34→20:25)
[2017-08-27] MEDS: levETIRAcetam 100 MG/ML ORASYR GT SCH ×2 (08:34→20:26)
--- NOTE | 2017-08-27 08:34 | NUR ---
ADMINISTERED SCHEDULED MEDS. PT TOLERATED WELL. CHECKED G-TUBE RESIDUAL 0ML NOTED. FREE WATER FLUSH 325ML. NO SIGNS OF DISTRESS. WILL CONTINUE TO MONITOR.
[2017-08-27] MEDS: METOPROLOL 50 MG TAB GT SCH ×2 (08:35→20:26)
[2017-08-27] MEDS: POTASSIUM CHLORIDE 20% 40 MEQ/15 ML UDC GT SCH (08:35)
[2017-08-27] MEDS: MULTIVITAMIN 5 ML ORASYR GT SCH (08:35)
[2017-08-27] MEDS: LACTOBACILLUS RHAMNOSUS GG 1 EACH CAP PO SCH (08:36)
[2017-08-27] MEDS: ASPIRIN 81 MG TAB.CHEW GT SCH (08:36)
[2017-08-27] MEDS: CALCIUM CARB/VIT-D 500 MG/200 IU 1 TAB GT SCH (08:36)
[2017-08-27] MEDS: NYSTATIN POW 100 MU/GM 15 GM BTL TP SCH ×2 (08:37→20:39)
[2017-08-27] MEDS: HYDRAGUARD CREAM TP SCH (08:37)
[2017-08-27] MEDS ORDERED: POTASSIUM CHLORIDE 40 MEQ, LIDOCAINE 1% 25 MG in NACL 0.9% 250 ML IV SCH (09:00)
[2017-08-27] MEDS ORDERED: MAG SULF 2000 MG/WATER PREMIX 100 ML IV SCH (09:00)
--- NOTE | 2017-08-27 09:15 | NUR ---
CLEANED PT AND CHANGED LINENS AND GOWN. SPONGE BATH DONE. PT TOLERATED WELL. REPOSITIONED TO LEFT SIDE. HOB 30 DEGREES. SUCTIONED TRACH AND ORAL SECRETIONS. WHITE FROTHY SPUTUM NOTED. PT O2 SAT WENT DOWN TO 85%. CALLED RT. DR. MEDINA CAME IN AND SAW PT. ORDERS RECEIVED. PT IN STABLE CONDITION.
--- NOTE | 2017-08-27 09:30 | NUR ---
PT FI02 INCREASED TO 100 PT DESATTING RN AWARE
[2017-08-27] MEDS: MAGNESIUM OXIDE 400 MG TAB PO SCH (09:41)
[2017-08-27] MEDS ORDERED: FUROSEMIDE 40 MG/4 ML VIAL IVP SCH (11:00)
--- NOTE | 2017-08-27 11:37 | NUR ---
CM NOTE PER JEN OF [facility] [place] PH# [phone], PATIENT CAN GO BACK TO RM [address] SKY WHEN PATIENT IS READY FOR DISCHARGE, NUMBER TO CALL FOR REPORT PH# [phone]. LAURA OROPEZA AWARE.
[2017-08-27 12:00] VITALS: BP 101/44
--- NOTE | 2017-08-27 12:00 | NUR ---
CHANGED G-TUBE FEEDING BAG. FIBERSOURCE FEEDING AT 60ML/HR. CHECKED FOR RESIDUAL 5ML NOTED. PT TOLERATING WELL. HOB 30 DEGREES. NO SIGNS OF DISTRESS. WILL CONTINUE TO MONITOR.
[2017-08-27] MEDS: PIPER/TAZO 3.375GM/D5W PREMIX 50 ML IV SCH ×3 (13:00→23:09)
[2017-08-27] MEDS: SODIUM PHOS / POTASSIUM PHOS 1 PKT PDR PO SCH ×2 (13:09→16:49)
--- NOTE | 2017-08-27 13:15 | NUR ---
PT FIO2 DECRREASED TO .60 RN AWARE
--- NOTE | 2017-08-27 14:46 | NUR ---
PT AWAKE AND ANXIOUS. ADMINISTERED ATIVAN 0.5MG VIA G-TUBE. PT TOLERATED WELL. O2 SAT 100%. FIO2 60%. NO SIGNS OF DISTRESS. WILL CONTINUE TO MONITOR.
[2017-08-27 16:00] VITALS: BP 112/40
--- NOTE | 2017-08-27 16:53 | NUR ---
PT SLEEPING WITH NO SIGNS OF DISTRESS. O2 SAT 100%. FIO2 60%. HOB 35 DEGREES. BED IN LOW POSITION, WHEELS LOCKED, CALL LIGHT WITHIN REACH. WILL CONTINUE TO MONITOR.
[2017-08-27 17:25] LABS: ANION GAP 13.1 (8-16); CREATININE 0.8 mg/dL (0.6-1.3); POTASSIUM 3.1 mmol/L (3.5-5.1)
--- NOTE | 2017-08-27 17:51 | NUR ---
CONTINUED TO MONITOR PT ON VENT WITH SETTINGS CHARTED BREATH SOUNDS PRESENT BILAT RHONCHI SXN PT WITH MOD AMT OFF WHITE SECS TRACH CARE DONE VENT PLUGGED INTO RED OUTLET WILL CONTINUE TO MONITOR PT ON VENT
--- NOTE | 2017-08-27 18:30 | NUR ---
PT HAD A SMALL BM. CHANGED LINENS AND CLEANED PT. CHANGED DRESSING TO SACRAL WOUND. APPLIED HYDRAGUARD. DRESSING DRY AND INTACT. REPOSITIONED AND TURNED TO LEFT LATERAL. HOB 30 DEGREES. NO SIGNS OF DISTRESS. O2 SAT 99%. WILL CONTINUE TO MONITOR.
--- NOTE | 2017-08-27 18:58 | NUR ---
LOWERED PT FIO2 TO 50% FROM 60% SATS 99%
--- NOTE | 2017-08-27 19:08 | NUR ---
ENDORSED PT TO NIB ADJUSTER NURSE RASHARD AT BEDSIDE FOR CONTINUITY OF CARE. PT IN STABLE CONDITION.
--- NOTE | 2017-08-27 19:10 | NUR ---
RECEIVED PT AWAKE, APHASIC, WITH TRACH TO VENT, VITAL SIGNS STABLE, SAT-98% ON 50% FIO2, G-TUBE FEEDING AT 60ML/H, HOB ELEVATED AT ALL TIMES, IVF INFUSING WELL, GARCIA CATH IN PLACE WITH YELLOW OUTPUT, ALL EXTREMITIES CONTRACTED, WILL REPOSITIONED Q2H AND OFFLOAD PRESSURE AREAS, ON CONTACT ISOLATION, SAFETY MEASURES IN PLACE.
[2017-08-27 20:00] VITALS: BP 118/44
[2017-08-27] MEDS: FAMOTIDINE 20 MG/2 ML VIAL IV SCH (20:25)
[2017-08-27] MEDS: FUROSEMIDE 20 MG/2 ML VIAL IVP SCH (20:27)
[2017-08-27] MEDS: INSULIN LISPRO SLIDING SCALE 100 UNITS/ML VIAL SUBQ PRN (20:42)
--- NOTE | 2017-08-27 21:14 | NUR ---
LOWERED FIO2 TO 40% SATS 99%
[2017-08-27] MEDS: ACETAMINOPHEN 325 MG SUPP RC PRN (23:09)
--- NOTE | 2017-08-27 23:10 | NUR ---
ORAL TEMP-100.6, TYLENOL SUPP GIVEN, REPOSITIONED TO RT SIDE, MONITORED CLOSELY.
[2017-08-27 23:30] VITALS: BP 109/55
--- NOTE | 2017-08-27 23:40 | NUR ---
PT SAT DOWN TO 60'S AND HR-120'S, PAGED RT BRITTANY AND MADE AWARE, SUCTIONED TRACHEALLY AND ORALLY, FIO2 INCREASE TO 100%, SAT STILL IN THE 70'S, PT REPOSITIONED TO SUPINE, SAT WENT UP TO 95%, HR WENT DOWN TO 105, PT APPEARS MORE COMFORTABLE, IV ANTIBIOTIC INFUSING WELL, CONTINUE TO MONITOR CLOSELY.
[2017-08-28] VITALS (7 sets, daily range): BP systolic 94–146; BP diastolic 45–67
--- NOTE | 2017-08-28 04:00 | NUR ---
PT SLEEPING, OPEN EYES TO TOUCH, VITAL SIGNS STABLE, BP ON THE LOW SIDE BUT STABLE, NO RESPIRATORY DISTRESS NOTED, CONT TO REPOSITION AND OFFLOAD PRESSURE AREAS, DRESSING TO SACROCOCCYGEAL AREA DRY AND INTACT, ORAL CARED ONE, MONITORED CLOSELY.
[2017-08-28] MEDS: PIPER/TAZO 3.375GM/D5W PREMIX 50 ML IV SCH ×4 (06:07→23:15)
[2017-08-28] MEDS: LEVOTHYROXINE 0.025 MG TAB GT SCH (06:14)
[2017-08-28] MEDS: LEVOTHYROXINE 0.1 MG TAB GT SCH (06:14)
--- NOTE | 2017-08-28 06:15 | NUR ---
BLOOD SUGAR CHECKED WITH 123 RESULT, 5ML RESIDUAL NOTED, DUE MEDS GIVEN THRU GT, SUCTION SECRETION PRN, MONITORED CLOSELY.
[2017-08-28] MEDS: ALBUTEROL SULFATE/IPRATROPIU 3 ML SOL IH SCH ×3 (06:45→19:12)
[2017-08-28 06:51] LABS: HEMATOCRIT 25.1 % (36-48); HEMOGLOBIN 8.2 g/dL (12.0-16.0); MEAN CORPUSCULAR HEMOGLOBIN 27 pg (27-31); MEAN CORPUSCULAR HGB CONC 33 g/dL (33-37); MEAN CORPUSCULAR VOLUME 82 fL (80-94); PLATELET COUNT (AUTO) 182 K/uL (140-450); RED BLOOD CELL COUNT(AUTO) 3.06 MIL/uL (4.20-5.40); RED CELL DISTRIBUTION WIDTH 15.7 % (11.6-13.7)
[2017-08-28] MEDS: BLOOD GLUCOSE MONITORING 1 DEV DEV FS SCH ×4 (06:53→21:00)
[2017-08-28 06:55] LABS: CARBON DIOXIDE 30.9 mmol/L (21-32); CREATININE 0.7 mg/dL (0.6-1.3)
[2017-08-28 06:57] LABS: MAGNESIUM 2.3 mg/dL (1.8-2.4)
[2017-08-28 07:05] LABS: WHITE BLOOD COUNT (AUTO) 31.3 K/uL (4.8-10.8)
[2017-08-28 07:06] LABS: POTASSIUM 2.9 mmol/L (3.5-5.1)
--- NOTE | 2017-08-28 07:09 | NUR ---
PT AWAKE, NO SIGNS OF DISTRESS, BEDSIDE REPORT GIVEN TO JOHNNA ARGUELLO FOR CONTINUITY OF CARE.
--- NOTE | 2017-08-28 07:10 | NUR ---
RECEIVED PT AWAKE, APHASIC, WITH TRACH TO VENT, VITAL SIGNS STABLE, SAT-98% ON 50% FIO2, G-TUBE FEEDING AT 60ML/H, HOB ELEVATED AT ALL TIMES, IVF INFUSING WELL, GARCIA CATH IN PLACE, DRAINING CLEAR YELLOW OUTPUT. IV LINE NOTED TO THE LEFT FOREARM WITH IVF INFUSING WELL. PATIENT ON TELE MONITORING. BED LOWERED WITH CALL LIGHT WITHIN REACH. WILL CONTINUE TO MONITOR
[2017-08-28 07:22] LABS: EOSINOPHILS % (MANUAL) 1 % (0-4); LYMPHOCYTES % (MANUAL) 9 % (20-46); MONOCYTES % (MANUAL) 12 % (5-12)
[2017-08-28] MEDS: ACETAMINOPHEN 325 MG SUPP RC PRN ×2 (08:57→19:45)
[2017-08-28] MEDS: FUROSEMIDE 20 MG/2 ML VIAL IVP SCH ×2 (09:00→19:46)
[2017-08-28] MEDS: NYSTATIN POW 100 MU/GM 15 GM BTL TP SCH ×2 (09:00→19:52)
[2017-08-28] MEDS: HYDRAGUARD CREAM TP SCH (09:00)
[2017-08-28] MEDS: ASPIRIN 81 MG TAB.CHEW GT SCH (09:06)
[2017-08-28] MEDS: DOCUSATE 100 MG/10 ML UDC GT SCH ×2 (09:08→19:45)
[2017-08-28] MEDS: MAGNESIUM OXIDE 400 MG TAB PO SCH (09:13)
[2017-08-28] MEDS: CALCIUM CARB/VIT-D 500 MG/200 IU 1 TAB GT SCH (09:13)
[2017-08-28] MEDS: METOPROLOL 50 MG TAB GT SCH ×2 (09:13→19:45)
[2017-08-28] MEDS: SODIUM PHOS / POTASSIUM PHOS 1 PKT PDR PO SCH ×3 (09:14→18:48)
[2017-08-28] MEDS: POTASSIUM CHLORIDE 20% 40 MEQ/15 ML UDC GT SCH (09:14)
--- NOTE | 2017-08-28 09:15 | NUR ---
ADMINISTERED DUE MEDICATIONS VIA G-TUBE. NO RESIDUALS NOTED. PATIENT TOLERATED WELL
[2017-08-28] MEDS: MULTIVITAMIN 5 ML ORASYR GT SCH (09:16)
[2017-08-28] MEDS: levETIRAcetam 100 MG/ML ORASYR GT SCH ×2 (09:16→19:45)
[2017-08-28] MEDS: LACTOBACILLUS RHAMNOSUS GG 1 EACH CAP PO SCH (09:16)
--- NOTE | 2017-08-28 09:31 | NUR ---
VENT CHECK, NO SXN REQUIRED AT THIS TIME, AIRWAY IS PATENT
[2017-08-28 10:58] LABS: BASOPHILS % (AUTO) 0.3 % (0.0-2.0); EOSINOPHILS # (AUTO) 0.4 K/uL (0-0.4); EOSINOPHILS % (AUTO) 3.3 % (0.0-4.0); HEMATOCRIT 25.1 % (36-48); HEMOGLOBIN 8.1 g/dL (12.0-16.0); LYMPHOCYTES # (AUTO) 1.4 K/uL (2.5-16.5); LYMPHOCYTES % (AUTO) 11.1 % (20.5-51.1); MEAN CORPUSCULAR HEMOGLOBIN 27 pg (27-31); MEAN CORPUSCULAR HGB CONC 32 g/dL (33-37); MEAN CORPUSCULAR VOLUME 83 fL (80-94); MONOCYTES # (AUTO) 1.1 K/uL (0.8-1.0); MONOCYTES % (AUTO) 8.5 % (1.7-9.3); NEUTROPHILS # (AUTO) 9.5 K/uL (1.8-7.7); NEUTROPHILS % (AUTO) 76.8 % (42.2-75.2); PLATELET COUNT (AUTO) 237 K/uL (140-450); RED BLOOD CELL COUNT(AUTO) 3.03 MIL/uL (4.20-5.40); RED CELL DISTRIBUTION WIDTH 15.4 % (11.6-13.7); WHITE BLOOD COUNT (AUTO) 12.4 K/uL (4.8-10.8)
--- NOTE | 2017-08-28 11:14 | NUR ---
VENT CHECK, SXN PT LARGE AMT OF CREAM COLOR SECRETIONS, AIRWAY IS PATENT AND PT IS RESTING
[2017-08-28] MEDS: NACL 0.9% 1,000 ML IV SCH ×2 (11:30→14:26)
--- NOTE | 2017-08-28 13:22 | NUR ---
VENT CHECK, I\L TX GIVEN WITH DUONEB 3ML WITH NO ADVERSE REACTION POST TX B\S ARE RHONCHI AND SXN PT LARGE AMT OF CREAM COLOR SECRETIONS
--- NOTE | 2017-08-28 13:30 | NUR ---
PATIENT HAD A BM. STOOL LOOSE, LIGHT BROWN AND MODERATED IN AMOUNT. PATIENT GIVEN PERINEAL CARE. SACRAL WOUND DRESSING CHANGED
[2017-08-28] MEDS ORDERED: POTASSIUM CHLORIDE 40 MEQ, LIDOCAINE 1% 25 MG in NACL 0.9% 250 ML IV SCH ×2 (14:00→18:05)
--- NOTE | 2017-08-28 14:51 | NUR ---
08/28/17 RD Follow Up Completed Please refer to nutrition assessment under care activity for estimated needs. Recommendations: 1. Continue current TF as tolerated. 2. RD will follow up in 2-3 days; high risk. [place] Montoya RD, CNSC
--- NOTE | 2017-08-28 15:11 | NUR ---
VENT CHECK, SXN PT MODERATE AMT OF CREAM COLOR SECRETIONS, PT IS SLEEPING
--- NOTE | 2017-08-28 17:22 | NUR ---
VENT CHECK, SXN PT LARGE AMT OF CREAM COLOR SECRETIONS, TRACH CARE DONE
[2017-08-28] MEDS ORDERED: HYDRAGUARD CREAM TP PRN (18:00)
[2017-08-28] MEDS ORDERED: SKINTEGRITY HYDROGEL TP PRN (18:00)
--- NOTE | 2017-08-28 18:00 | NUR ---
MADE DR MEDINA AWARE THAT ORDERED FERRLECIT AND POTASSIUM WITH XYLOCAINE IS PREPARED BY PHARMACY BUT PHARMACY HAS LEFT. TRANSFER CLERK MADE AWARE WELL
[2017-08-28] MEDS ORDERED: FERRIC GLUCONATE 125 MG in NACL 0.9% 100 ML IV SCH (18:05)
--- NOTE | 2017-08-28 19:20 | NUR ---
PATIENT REPORT GIVEN AT BEDSIDE. PATIENT ENDORSED IN STABLE CONDITION
--- NOTE | 2017-08-28 19:21 | NUR ---
RECEIVED PT STABLE ON VENT SUPPORT AT DOCUMENTED SETTINGS, SUCTIONED MODERATE AMOUNTS OF THICK WHITE SECRETIONS, PORTEX 8 TRACH SECURED/PATENT/MIDLINE, CONT PULSE OX ON, ALARMS SET AND AUDIBLE, AMBU BAG AT BEDSIDE, VENT PLUGGED INTO RED OUTLET, WILL CONTINUE TO MONITOR.
--- NOTE | 2017-08-28 19:30 | NUR ---
RECEIVED REPORT FROM AM NURSE. PT IS APHASIC, BEDBOUND, WILL CONTINUE WITH CONSTANT REINFORCEMENT. PT O2 SAT 89-90% ON TRACH TO VENT, RR 30 MODERATELY LABORED. RT AT BEDSIDE TO SUCTION PT, SPO2 96%. VS CHECKED, BP 146/56, HR 130-140, TEMP 103.[address] TARAN TOMLIN MD AT BEDSIDE TO SEE PT, DISCUSSED PT CONDITION, MD OK TO GIVE DUE 2100 MEDS EARLY, COOLING MEASURES ENSURED, WILL ALSO ADMINISTER TYLENOL SUPPOSITORY PRN. PALS NURSE IN PLACE. PT HAS GTUBE, RESIDUAL 1ML, FEEDING ADMINISTERING WELL. GARCIA CATH IN PLACE, DRAINING CLEAR YELLOW URINE. SACRAL DRESSING CLEAN DRY AND INTACT. IV ACCESS ASYMPTOMATIC, PATENT AND INTACT. IVF INFUSING WELL. SAFETY MEASURES ENSURED. RECEIVED CALL FROM HYDROGEN TREATER, WAS MADE AWARE THAT PT'S DUE MEDS K-RIDER WITH LIDOCAINE IVPB AND FERRELECIT IVPB WILL BE MIXED BY PHARMACY, HYDROGEN TREATER WILL BRING MEDS WHEN READY.
--- NOTE | 2017-08-28 19:52 | NUR ---
PT HAS SMALL LOOSE BM, PT CLEANED, TURNED AND REPOSITIONED WITH FRONT OFFICE SPEC. ADMINISTERED TYLENOL SUPPOSITORY PRN FOR FEVER. BLOOD GLUCOSE 160, ADMINISTERED INSULIN COVERAGE WITH EDUCATION. GTUBE PLACEMENT VERIFIED, RESIDUAL 1ML, ADMINISTERED REMAINING DUE MEDS WITH EDUCATION, PT TOLERATED WELL, WILL CONTINUE WITH CONSTANT REINFORCEMENT. ALL NEEDS MET. SAFETY MEASURES ENSURED. CALL LIGHT WITHIN REACH. Addendum: 08/29/17 at 0025 by Louie Montgomery RN HELD LASIX DUE TO K 2.9 IN THE AM. Addendum: 08/29/17 at 0029 by Louie Montgomery RN WRONG TIME FOR INSULIN ADMINISTRATION
[2017-08-28] MEDS: FAMOTIDINE 20 MG/2 ML VIAL IV SCH (20:59)
[2017-08-28] MEDS: INSULIN LISPRO SLIDING SCALE 100 UNITS/ML VIAL SUBQ PRN (21:07)
--- NOTE | 2017-08-28 21:07 | NUR ---
BLOOD GLUCOSE 160, INSULIN COVERAGE ADMINISTERD. ADMINISTERED FERRELECIT IVPB. IVPB INFUSING WELL.
--- NOTE | 2017-08-28 23:26 | NUR ---
CALLED PHARMACY, ASKED WHETHER ZOSYN 3.375G IN 50ML D5W IVPB AND K-RIDER WITH 1% LIDOCAINE IN 250ML NS IVPB ARE COMPATIBLE TO RUN IN THE SAME IV SITE, MIGUEL FROM PHARMACY CONFIRMED THAT THEY ARE COMPATIBLE. ADMINISTERED ZOSYN IVPB AND K-RIDER WITH LIDOCAINE IVPB, INFUSING WELL. RT AT BEDSIDE TO CHECK ON PT, WAS MADE AWARE THAT PT'S FIO2 WAS DECREASED TO 45%. PT SLEEPING COMFORTABLY, FLACC 0. SPO2 97% ON TRACH TO VENT, RR 19 EVEN AND UNLABORED, HR 108, BP 102/55. TEMP 100.2 AXILLARY, COOLING MEASURES IN PLACE, WILL ADMINISTER TYLENOL SUPPOSITORY WHEN DUE. ALL NEEDS MET. SAFETY MEASURES ENSURED. CALL LIGHT WITHIN REACH.
[2017-08-29] VITALS: BP 102/55
[2017-08-29] MEDS: HYDRAGUARD CREAM TP SCH ×4 (00:30→21:00)
--- NOTE | 2017-08-29 00:30 | NUR ---
PT HAD LARGE LOOSE BM, PT CLEANED, TURNED AND REPOSITIONED BY CNAs. SACRAL WOUND CLEANSED, HYDRAGUARD APPLIED ORDERED. DRESSING REINFORCED, CLEAN DRY AND INTACT. PT TOLERATED WELL. GTUBE DRESSING CHANGED. ORAL CARE PERFORMED. SPO2 96% ON TRACH TO VENT, RR 18 EVEN AND UNLABORED, HR 98. ALL NEEDS MET. SAFETY MEASURES ENSURED.
[2017-08-29 04:00] VITALS: BP 112/64
--- NOTE | 2017-08-29 04:15 | NUR ---
PT SLEEPING COMFORTABLY, AROUSABLE TO TOUCH, SPO2 97% ON TRACH TO VENT, HR 95. INTERMITTENT PRODUCTIVE COUGH NOTED, PT SUCTIONED. RR EVEN AND SYMMETRICAL. TEMP 98.9 AT THIS TIME. GTUBE PLACEMENT VERIFIED, RESIDUAL 1ML, REPLACED FIBERSOURCE BAG AND TUBINGS, ADMINISTERING WELL AT 60ML/HR. ALL NEEDS MET. SAFETY MEASURES ENSURED.
--- NOTE | 2017-08-29 04:45 | NUR ---
PT HAD SMEAR OF LOOSE BM, PT CLEANED BY CNAs. SACRAL WOUND CLEANSED, PAT DRY, HYDRAGUARD REAPPLIED, COVERED WITH OPTIFOAM AND COMPOSITE DRESSING. PT TURNED AND REPOSITIONED, OFFLOADED PRESSURE AREAS. SPO2 98% ON TRACH TO VENT, RR 26, HR 105. PT ABLE TO TOLERATE ACTIVITY. ALL NEEDS MET. SAFETY MEASURES ENSURED.
[2017-08-29] MEDS: BLOOD GLUCOSE MONITORING 1 DEV DEV FS SCH ×4 (06:10→20:37)
[2017-08-29] MEDS: PIPER/TAZO 3.375GM/D5W PREMIX 50 ML IV SCH ×3 (06:10→17:42)
[2017-08-29] MEDS: LEVOTHYROXINE 0.025 MG TAB GT SCH (06:10)
[2017-08-29] MEDS: LEVOTHYROXINE 0.1 MG TAB GT SCH (06:10)
--- NOTE | 2017-08-29 06:11 | NUR ---
BLOOD GLUCOSE 92, NO INSULIN COVERAGE NEEDED. GTUBE PLACEMENT VERIFIED, RESIDUAL 1ML, ADMINISTERED DUE MEDS VIA GTUBE. GTUBE FEEDING ADMINISTERING WELL. ALL NEEDS MET. IVPB INFUSING WELL. SAFETY MEASURES ENSURED.
[2017-08-29 06:39] LABS: HEMATOCRIT 27.7 % (36-48); HEMOGLOBIN 9.1 g/dL (12.0-16.0); MEAN CORPUSCULAR HEMOGLOBIN 27 pg (27-31); MEAN CORPUSCULAR HGB CONC 33 g/dL (33-37); MEAN CORPUSCULAR VOLUME 83 fL (80-94); PLATELET COUNT (AUTO) 302 K/uL (140-450); RED BLOOD CELL COUNT(AUTO) 3.33 MIL/uL (4.20-5.40); RED CELL DISTRIBUTION WIDTH 15.3 % (11.6-13.7); WHITE BLOOD COUNT (AUTO) 23.2 K/uL (4.8-10.8)
[2017-08-29] MEDS: ALBUTEROL SULFATE/IPRATROPIU 3 ML SOL IH SCH ×3 (06:59→19:38)
--- NOTE | 2017-08-29 06:59 | NUR ---
RECEIVED PT ON CARESCAPE ON A/C12 VT 400 PEEP5 FIO2 40 ALARMS ARE ON AND AUDIBLE BMV HOB PTS TRACH PORTEX 8 IS SECURE BS RHONCI I\L LAVAGE AND SX LG WHITE SECRETIONS PT IN HF QUIET HHN GIVEN I\L WITH 3 MG DUONEB NO APPARENT DISTRESS NOTED VENT PLUGGED INTO RED OUTLET CUFF PRESSURE IS 26 CM H20
[2017-08-29 07:06] LABS: ANION GAP 13.3 (8-16); CARBON DIOXIDE 27.9 mmol/L (21-32); CREATININE 0.6 mg/dL (0.6-1.3); POTASSIUM 4.2 mmol/L (3.5-5.1)
[2017-08-29 07:07] LABS: MAGNESIUM 1.8 mg/dL (1.8-2.4); PHOSPHORUS 2.7 mg/dL (2.5-4.9)
--- NOTE | 2017-08-29 07:10 | NUR ---
ENDORSED PLAN OF CARE TO AM NURSE. CONDITION STABLE
--- NOTE | 2017-08-29 07:11 | NUR ---
RECEIVED REPORT FROM VIDEO SPECIALIST NURSE FOR CONTINUITY OF CARE. RT IN ROOM. O2 @99% , HR 111. AT 39FIOS. PATIENT APHASIC. NO FACIAL GRIMACING NOTED. NO ACUTE DISTRESS NOTED. WITH 20G IV TO LFA WITH NS @75CC/HR. WILL CONT TO MONITOR PT.
--- NOTE | 2017-08-29 07:45 | NUR ---
GATHERING VITALS AND NOTICED O2 SATURATION DROPPING TO 89% ON FIOS 39, HR 120. RESPIRATIONS 22. CHANGED PULSE OX. ELEVATED HOB AND PERFORMED ORAL SUCTIONING WELL DEEP SUCTION WITH MODERATE SPUTUM. NOTIFIED ASSIGNED RT . PER RT SHE WILL COME SEE PT.WILL CONT TO MONITOR PT.
[2017-08-29 08:00] VITALS: BP 131/63
[2017-08-29 08:02] LABS: BASOPHILS % (MANUAL) 0 % (0-2); EOSINOPHILS % (MANUAL) 3 % (0-4); LYMPHOCYTES % (MANUAL) 7 % (20-46); MONOCYTES % (MANUAL) 5 % (5-12)
--- NOTE | 2017-08-29 08:40 | NUR ---
TUBE FEEDING HELD PATIENT PROVIDED WITH PERICARE. PT HAD LARGE LOOSE BM.WOULD CARE PROVIDED TO SACRUM. DRY DSG INTACT. FC BAG WITH 900CC OF CLEAR YELLOW URINE. TURNED AND REPOSITIONED TOLERATED WELL. HOB ELEVATED. FEEDING RESUMED.
--- NOTE | 2017-08-29 08:43 | NUR ---
MD IN TO SEE PATIENT. INFORMED OF PT WITH LARGE LOOSE STOOL. FOUL SMELLING. NO MUCOUS OR BLOOD NOTED. TACHYCARDIA. AND DESATURATION TO 89-90%WILL CONT TO MONITOR PT.
[2017-08-29] MEDS: DOCUSATE 100 MG/10 ML UDC GT SCH ×2 (09:00→20:38)
[2017-08-29] MEDS: SKINTEGRITY HYDROGEL TP SCH (09:00)
[2017-08-29] MEDS: ASPIRIN 81 MG TAB.CHEW GT SCH (09:03)
[2017-08-29] MEDS: CALCIUM CARB/VIT-D 500 MG/200 IU 1 TAB GT SCH (09:03)
[2017-08-29] MEDS: METOPROLOL 50 MG TAB GT SCH ×2 (09:03→20:38)
[2017-08-29] MEDS: SODIUM PHOS / POTASSIUM PHOS 1 PKT PDR PO SCH ×3 (09:04→17:13)
[2017-08-29] MEDS: FUROSEMIDE 20 MG/2 ML VIAL IVP SCH ×2 (09:04→20:39)
[2017-08-29] MEDS: MAGNESIUM OXIDE 400 MG TAB PO SCH (09:04)
[2017-08-29] MEDS: LACTOBACILLUS RHAMNOSUS GG 1 EACH CAP PO SCH (09:04)
[2017-08-29] MEDS: POTASSIUM CHLORIDE 20% 40 MEQ/15 ML UDC GT SCH (09:05)
[2017-08-29] MEDS: MULTIVITAMIN 5 ML ORASYR GT SCH (09:05)
[2017-08-29] MEDS: levETIRAcetam 100 MG/ML ORASYR GT SCH ×2 (09:06→20:38)
--- NOTE | 2017-08-29 09:15 | NUR ---
VENT CHECK BS COARSE I\L LAVAGE AND SX COPIOUS WHITE POX IN PLACE
[2017-08-29 09:26] LABS: HEMATOCRIT 26.3 % (36-48); HEMOGLOBIN 8.6 g/dL (12.0-16.0); MEAN CORPUSCULAR HEMOGLOBIN 27 pg (27-31); MEAN CORPUSCULAR HGB CONC 33 g/dL (33-37); MEAN CORPUSCULAR VOLUME 83 fL (80-94); PLATELET COUNT (AUTO) 291 K/uL (140-450); RED BLOOD CELL COUNT(AUTO) 3.17 MIL/uL (4.20-5.40); RED CELL DISTRIBUTION WIDTH 15.4 % (11.6-13.7)
--- NOTE | 2017-08-29 09:31 | NUR ---
AM SCHEDULED MEDICATIONS ADMINISTERED VIA G TUBE. G TUBE PATENT AND INTACT. ASPIRATED G TUBE, NO RESIDUAL. TOLERATED WELL. HOB ELEVATED. CRUSHED MEDICATIONS , ADMINISTERED INDIVIDUALLY WITH 10ML FLUSH IN BETWEEN MEDICATION WITH STERILE WATER. FLUSHED WITH STERILE UPON COMPLETION. FEEDING RESUMED.O2 SAT 98%, HR 108, RESP 19. WILL CONT TO MONITOR PT.
[2017-08-29 09:54] LABS: BASOPHILS % (MANUAL) 0 % (0-2); EOSINOPHILS % (MANUAL) 1 % (0-4); LYMPHOCYTES % (MANUAL) 8 % (20-46); MONOCYTES % (MANUAL) 4 % (5-12)
--- NOTE | 2017-08-29 10:14 | NUR ---
TUBE FEEDING HELD PATIENT PROVIDED WITH PERICARE. PT HAD LARGE LOOSE BM.DRY DSG INTACT TO SACRUM. TURNED AND REPOSITIONED TOLERATED WELL. HOB ELEVATED. FEEDING RESUMED.O2 SAT @98% ON FIOS40%, RR 17, HR 90. WILL CONT TO MONITOR PT.
[2017-08-29] MEDS: INSULIN LISPRO SLIDING SCALE 100 UNITS/ML VIAL SUBQ PRN (11:32)
--- NOTE | 2017-08-29 11:58 | NUR ---
ADMINISTERED ZOSYN ORDERED. PATIENT TOLERATED WELL . BLOOD GLUCOSE 155. ADMINISTERED 2 UNITS OF INSULIN. CONT ON GT FEEDING ORDERED. TOLERATING WELL.BP 105/54,T98.6,HR95,RR18 OX SAT @99% ON VENTED TRACH FIOS 40%. WILL CONT TO MONITOR PT.
[2017-08-29 12:06] VITALS: BP 105/54
[2017-08-29] MEDS ORDERED: GENTAMICIN PER PHARMACY MC PRN (12:40)
--- NOTE | 2017-08-29 13:13 | NUR ---
VENT CHECK BS COARSE SX LG WHITE SECRETIONS HHN GIVEN I\L WITH 3MG DUONEB
[2017-08-29] MEDS: metroNIDAZOLE 500 MG/NS PREMIX 100 ML IV SCH ×2 (13:51→20:39)
--- NOTE | 2017-08-29 13:51 | NUR ---
ADMINISTERED FIRST DOSE OF FLAGYL ORDERED PER MD ORDER. ADMINISTERED SCHEDULES MEDS.HR 98. O2 SAT 96% ON FIOS40%. PATIENT IN BED WITH EYES OPEN NO ACUTE DISTRESS NOTED. WILL CONT TO MONITOR PT.
[2017-08-29] MEDS ORDERED: ATORVASTATIN 20 MG TAB PO SCH (14:30)
[2017-08-29] MEDS: NACL 0.9% 1,000 ML IV SCH (14:31)
--- NOTE | 2017-08-29 15:18 | NUR ---
AWAITING PHARMACY DOSED GENTAMICIN FOR ADMINISTRATION. PT IN BED WITH EYES OPEN. NO ACUTE DISTRESS NOTED. WILL CONT TO MONITOR.
[2017-08-29] MEDS: GENTAMICIN 100 MG in NACL 0.9% 100 ML IV SCH (15:34)
[2017-08-29 16:00] VITALS: BP 119/59
--- NOTE | 2017-08-29 17:30 | NUR ---
CHANGED IV SITE TO RFA WITH 22G, PATENT AND INTACT. GOOD BLOOD RETURN. ADMINISTERED MEDICATIONS ORDER PER . MARIA GUADALUPE LFA IV . PATIENT TOLERATED WELL. WILL CONT TO MONITOR PT.
--- NOTE | 2017-08-29 17:53 | NUR ---
increase fio2 to 50 change cabezas
--- NOTE | 2017-08-29 19:15 | NUR ---
ENDORSED REPORT TO SUPERVISOR ENGRAVING NURSE AT BEDSIDE FOR CONTINUITY OF CARE.
--- NOTE | 2017-08-29 19:40 | NUR ---
RECEIVED PT ON FIO2 OF 50%, AC , VENT CK DONE, DECREASED FIO2 BACK TO 40%, PT IS SATS 98%, HHN TX GAVE IN LINE, SX SMALL CLEAR THIN SECRETION, NO DISTRESS NOTED.
[2017-08-29 20:00] VITALS: BP 131/82
[2017-08-29] MEDS: FAMOTIDINE 20 MG/2 ML VIAL IV SCH (20:37)
[2017-08-29] MEDS ORDERED: FERRIC GLUCONATE 125 MG in NACL 0.9% 100 ML IV SCH (21:00)
--- NOTE | 2017-08-29 21:00 | NUR ---
PT HAD LARGE LOOSE BM, PT CLEANED BY CNAs, SACRAL WOUND CLEANSED, HYDRAGUARD APPLIED, SACRAL DRESSING CHANGED. BLOOD GLUCOSE 121, NO INSULIN COVERAGE NEEDED. GTUBE PLACEMENT VERIFIED, RESIDUAL 1ML. HELD DUE MED COLACE DUE TO LOOSE BM. ADMINISTERED REMAINING DUE MEDS WITH EDUCATION. ORAL CARE PERFORMED. SPO2 98% ON TRACH TO VENT, RR 20 EVEN AND UNLABORED, HR 102. ALL NEEDS MET. IVPB INFUSING WELL. GTUBE FEEDING ADMINISTERING WELL. SAFETY MEASURES ENSURED. Addendum: 08/29/17 at 2133 by Louie Montgomery RN PT TURNED AND REPOSITIONED, OFFLOADED PRESSURE AREAS BY Odilon
[2017-08-30] VITALS: BP 106/60
[2017-08-30] MEDS: PIPER/TAZO 3.375GM/D5W PREMIX 50 ML IV SCH ×2 (00:07→05:43)
--- NOTE | 2017-08-30 00:10 | NUR ---
ADMINISTERED DUE MED ZOSYN IVPB. PT HAD MODERATE AMT LOOSE BM, PT CLEANED WITH CNAs, SACRAL DRESSING CLEAN DRY AND INTACT. PT TURNED AND REPOSITIONED, OFFLOADED PRESSURE AREAS. GTUBE PLACEMENT VERIFIED, RESIDUAL 1ML, REPLACED FIBERSOURCE FEEDING AT 60ML/HR, ADMINISTERING WELL. PT SLEEPING COMFORTABLY, SPO2 96% ON TRACH TO VENT, RR 17 EVEN AND UNLABORED. ALL NEEDS MET. SAFETY MEASURES ENSURED.
[2017-08-30] MEDS: GENTAMICIN 100 MG in NACL 0.9% 100 ML IV SCH (03:13)
[2017-08-30] MEDS: NACL 0.9% 1,000 ML IV SCH ×2 (03:14→17:00)
--- NOTE | 2017-08-30 03:20 | NUR ---
PT SPO2 ALARMING AT 90-91% SPO2, PT SUCTIONED WITH WHITE CREAMY MODERATE SECRETIONS, FIO2 INCREASED TO 45%. PT IS CLEAN AND DRY, PT TURNED AND REPOSITIONED WITH STUDENT ADMISSIONS CLERK, OFFLOADED PRESSURE AREAS. PT SPO2 97% ON TRACH TO VENT, RR 20, HR 101. ADMINISTERED GENTAMYCIN IVPB ORDERED. ALL NEEDS MET. IVPB INFUSING WELL. SAFETY MEASURES ENSURED.
[2017-08-30 04:00] VITALS: BP 107/67
[2017-08-30] MEDS: metroNIDAZOLE 500 MG/NS PREMIX 100 ML IV SCH ×3 (04:18→20:29)
[2017-08-30] MEDS: LEVOTHYROXINE 0.025 MG TAB GT SCH (05:43)
[2017-08-30] MEDS: LEVOTHYROXINE 0.1 MG TAB GT SCH (05:43)
[2017-08-30] MEDS: BLOOD GLUCOSE MONITORING 1 DEV DEV FS SCH ×4 (05:44→20:37)
[2017-08-30] MEDS: INSULIN LISPRO SLIDING SCALE 100 UNITS/ML VIAL SUBQ PRN (06:02)
--- NOTE | 2017-08-30 06:03 | NUR ---
BLOOD GLUCOSE 153, ADMINISTERED INSULIN COVERAGE. PT HAS CONTINUOUS GTUBE FEEDING ADMINISTERING WELL. GTUBE PLACEMENT VERIFIED, RESIDUAL 1ML. ADMINISTERED REMAINING DUE MEDS. PT IS CLEAN AND DRY. SPO2 98% ON TRACH TO VENT, RR 19, HR 99, CONDITION STABLE. ALL NEEDS MET. IVPB INFUSING WELL. SAFETY MEASURES ENSURED. CALL LIGHT WITHIN REACH.
[2017-08-30 06:37] LABS: HEMATOCRIT 25.6 % (36-48); HEMOGLOBIN 8.3 g/dL (12.0-16.0); MEAN CORPUSCULAR HEMOGLOBIN 27 pg (27-31); MEAN CORPUSCULAR HGB CONC 32 g/dL (33-37); MEAN CORPUSCULAR VOLUME 83 fL (80-94); PLATELET COUNT (AUTO) 337 K/uL (140-450); RED CELL DISTRIBUTION WIDTH 15.3 % (11.6-13.7)
--- NOTE | 2017-08-30 07:10 | NUR ---
ENDORSED PLAN OF CARE TO AM NURSE. CONDITION STABLE.
[2017-08-30] MEDS: ALBUTEROL SULFATE/IPRATROPIU 3 ML SOL IH SCH ×3 (07:11→13:59)
--- NOTE | 2017-08-30 07:15 | NUR ---
RECEIVED REPORT FROM CALCULATING MACHINE OPERATOR NURSE. PT IS RESTING IN BED, PT IS AAOX1, APHASIC, BEDBOUND, PT HAS A SACRAL PRESSURE ULCER, DRESSING IS DRY AND INTACT, IV IS ON THE RIGHT FA, PATENT, INTACT, FLUSHING WELL, PT HAS NO G TUBE IN PLACE, NO RESIDUAL, PT HAS GARCIA CATHETER IN PLACE, CLEAR YELLOW URINE NOTED AT THIS TIME, PT IS ON A TRACH TO VENT, NO S/S OF RESPIRATORY DISTRESS OR DISCOMFORT NOTED, DISCUSSED PLAN OF CARE WITH PT, PT UNABLE TO VERBALIZE UNDERSTANDING, SAFETY/FALL/SEIZURE PRECAUTIONS ARE IN PLACE, CALL LIGHT IS WITHIN REACH, WILL CONTINUE TO MONITOR.
[2017-08-30 07:41] LABS: MAGNESIUM 1.6 mg/dL (1.8-2.4); PHOSPHORUS 3.3 mg/dL (2.5-4.9)
[2017-08-30 07:46] LABS: ANION GAP 14.7 (8-16); CARBON DIOXIDE 27.5 mmol/L (21-32); CREATININE 0.7 mg/dL (0.6-1.3); POTASSIUM 3.2 mmol/L (3.5-5.1)
[2017-08-30 07:55] LABS: LYMPHOCYTES % (MANUAL) 9 % (20-46); MONOCYTES % (MANUAL) 8 % (5-12)
[2017-08-30 08:00] VITALS: BP 112/61
[2017-08-30] MEDS: DOCUSATE 100 MG/10 ML UDC GT SCH ×2 (09:00→20:37)
[2017-08-30] MEDS: POTASSIUM CHLORIDE 20% 40 MEQ/15 ML UDC GT SCH (09:08)
[2017-08-30] MEDS: MULTIVITAMIN 5 ML ORASYR GT SCH (09:09)
[2017-08-30] MEDS: FUROSEMIDE 20 MG/2 ML VIAL IVP SCH ×2 (09:12→20:30)
[2017-08-30] MEDS: levETIRAcetam 100 MG/ML ORASYR GT SCH ×2 (09:12→20:29)
[2017-08-30] MEDS: LACTOBACILLUS RHAMNOSUS GG 1 EACH CAP PO SCH (09:14)
[2017-08-30] MEDS: SODIUM PHOS / POTASSIUM PHOS 1 PKT PDR PO SCH ×3 (09:14→17:57)
[2017-08-30] MEDS: CALCIUM CARB/VIT-D 500 MG/200 IU 1 TAB GT SCH (09:15)
[2017-08-30] MEDS: MAGNESIUM OXIDE 400 MG TAB PO SCH (09:15)
[2017-08-30] MEDS: METOPROLOL 50 MG TAB GT SCH ×2 (09:15→20:37)
--- NOTE | 2017-08-30 09:15 | NUR ---
DUE MEDICATIONS GIVEN, PT TOLERATED WELL. WOUND CARE DONE, PT TOLERATED WELL.
[2017-08-30] MEDS: ATORVASTATIN 20 MG TAB PO SCH (09:16)
[2017-08-30] MEDS: ASPIRIN 81 MG TAB.CHEW GT SCH (09:16)
[2017-08-30] MEDS: SKINTEGRITY HYDROGEL TP SCH (10:18)
[2017-08-30] MEDS: HYDRAGUARD CREAM TP SCH ×2 (10:18→13:00)
--- NOTE | 2017-08-30 10:59 | NUR ---
PT SLEEPING IN BED AT THIS TIME, NO S/S OF RESPIRATORY DISTRESS OR DISCOMFORT NOTED. CALL LIGHT WITHIN REACH.
--- NOTE | 2017-08-30 11:11 | NUR ---
vent check, sxn pt large amt of thick white secretions airway is patent
--- NOTE | 2017-08-30 11:34 | NUR ---
SPOKE WITH DR. MEDINA ABOUT LOW POTASSIUM AND MAGNESIUM LEVELS. SAID HE WOULD GO AHEAD AND PUT IN AN ORDER.
[2017-08-30 12:00] VITALS: BP 101/57
--- NOTE | 2017-08-30 12:25 | NUR ---
DURING THE 1200 VITALS SIGNS CHECK I NOTICED PT SAO2 WAS LOW AND SUCTIONED HER. SUCTIONING HELPED HER REGAIN A MORE NORMAL SATURATION LEVEL OF 95%. THICK CLEAR/WHITE SECRETIONS NOTED UPON SUCTIONING. NOTED HEART RATE INCREASED WELL HER RESPIRATIONS. WILL CONTINUE TO MONITOR.
--- NOTE | 2017-08-30 13:25 | NUR ---
PATIENT O2 SAT AT RANGING FROM 64-80% AT THIS TIME, PT TURNED AND DEEP SUCTIONED, I CALLED RTNARA I ASKED HER IF SHE CAN COME AND CHECK ON PT. NARA SAID SHE WAS IN ER AND WOULD COME OVER SOON SHE WAS DONE.
[2017-08-30] MEDS ORDERED: MAG SULF 2000 MG/WATER PREMIX 100 ML IV SCH (13:30)
--- NOTE | 2017-08-30 13:54 | NUR ---
NARA GALEANA IS AT PATIENT'S BEDSIDE. NOTIFIED DR. MEDINA OF THE PATIENT'S CURRENT STATUS. PER DR. MEDINA INCREASE FIO2 TO 100% AND TITRATE DOWN. DOCTOR SAID HE WOULD ALSO ORDER AND EKG.
--- NOTE | 2017-08-30 13:59 | NUR ---
called to pts room by sheri duff due to pt desating to 85% increased fio2 to 100% and sheri duff notified dr. fallon and ordered to titrate fio2 vent check done sxn pt large amt of white secretions
--- NOTE | 2017-08-30 14:30 | NUR ---
PT IS RESTING IN BED, NO S/S OF RESPIRATORY DISTRESS OR DISCOMFORT NOTED, PT SAT AT 100% O2.
--- NOTE | 2017-08-30 15:30 | NUR ---
VENT CHECK SNX PT MODERATE AMT OF WHITE SECRETIONS, AIRWAY IS PATENT DECREASED FIO2 TO 90%
[2017-08-30 16:00] VITALS: BP 106/51
--- NOTE | 2017-08-30 16:00 | NUR ---
PT IN BED RESTING. NO S/S OF RESPIRATORY DISTRESS OR DISCOMFORT. PT SAO2 HAS STABILIZED AT THIS TIME. BED IN LOWEST POSITION. WILL CONTINUE TO MONITOR.
--- NOTE | 2017-08-30 16:53 | NUR ---
VENT CHECK, SXN PT MODERATE AMT OF THICK WHITE SECRETIONS, B\S ARE RHONCHI TRACH CARE DONE: CHANGED TRACH GAUZE AND DECREASED FIO2 TO 80% PT IS SLEEPING
[2017-08-30] MEDS ORDERED: POTASSIUM CHLORIDE 40 MEQ, LIDOCAINE 1% 25 MG in NACL 0.9% 250 ML IV SCH (18:00)
--- NOTE | 2017-08-30 18:11 | NUR ---
PT SLEEPING IN BED. SCHEDULED MEDICATIONS WERE WELL TOLERATED. NO S/S OF RESPIRATORY DISTRESS OR DISCOMFORT. WILL CONTINUE TO MONITOR.
--- NOTE | 2017-08-30 19:11 | NUR ---
PT SLEEPING IN BED. PT STABLE AT THIS TIME. ENDORSED PT TO MOTOR VEHICLE OPERATOR ROAD SUPERVISOR NURSE.
--- NOTE | 2017-08-30 19:12 | NUR ---
RECEIVED HANDOFF REPORT FROM AM RN. PATIENT IS APHASIC. PATIENT WITHDRAWS FROM PAIN. PATIENT IS AWAKE IN BED AND HAS SPONTANEOUS EYE OPENING. FLACC 0. PATIENT IV PATENT AND INTACT. NO SIGNS OR SYMPTOMS OF ACUTE DISTRESS NOTED. G TUBE PATENT AND INTACT. GARCIA CATH PATENT AND INTACT. PATIENT IS TRACH TO VENT, FIO2 80%, PEEP 3, RR 22. SAFETY MEASURES ENSURED. WILL CONTINUE TO MONITOR.
[2017-08-30 20:00] VITALS: BP 106/43
--- NOTE | 2017-08-30 20:04 | NUR ---
IN [facility], THERE IS NO 1900 HHN TO SCAN NEXT HHN TREATMENT IS SCHEDULED FOR 08/31/17 AT 0700, RETURN MEDICTION BACK TO THE [facility]. NO DISTRESS NOTED AND DECREASED FIO2 TO 60% SAO2 HOLDING AT 96N HR 111 RR 20BPM
[2017-08-30] MEDS: NYSTATIN/TRIAMCINOLONE CRM 15 GM TUBE TP SCH (20:36)
[2017-08-30] MEDS: FAMOTIDINE 20 MG/2 ML VIAL IV SCH (20:40)
--- NOTE | 2017-08-30 20:40 | NUR ---
PM MEDS GIVEN WITH EDUCATION. REINFORCEMENT NEEDED. G TUBE RESIDUAL 0. PATIENT TOLERATED MEDICATION DISTRIBUTION WELL. LOPRESSOR HELD D/T LOW BP. MD AWARE. WILL CONTINUE TO MONITOR.COLACE HELD D/T DIARRHEA. NO SIGNS OR SYMPTOMS OF ACUTE DISTRESS NOTED. SAFETY MEASURES ENSURED. CALL LIGHT WITHIN REACH. WILL CONTINUE TO MONITOR.
--- NOTE | 2017-08-30 20:43 | NUR ---
RT CALLED D/T DECREASED O2 SAT. RT IN TO SEE PATIENT. SAFETY MEASURES ENSURED. WILL CONTINUE TO MONITOR.
--- NOTE | 2017-08-30 20:45 | NUR ---
SAO2 DECREASED TO 90% ON PULSE OX, INCREASED FIO2 TO 80%, SAO2 96% HR 116, RR 21BPM SUCTIONED SMALL AMTS OF SECRETIONS
[2017-08-31] VITALS: BP 111/57
[2017-08-31] MEDS: HYDRAGUARD CREAM TP SCH ×3 (00:31→13:08)
[2017-08-31 04:00] VITALS: BP 117/62
[2017-08-31] MEDS: metroNIDAZOLE 500 MG/NS PREMIX 100 ML IV SCH ×3 (05:33→20:51)
[2017-08-31] MEDS: NACL 0.9% 1,000 ML IV SCH ×2 (05:34→21:01)
[2017-08-31] MEDS: LEVOTHYROXINE 0.025 MG TAB GT SCH (05:34)
[2017-08-31] MEDS: LEVOTHYROXINE 0.1 MG TAB GT SCH (05:34)
[2017-08-31] MEDS: BLOOD GLUCOSE MONITORING 1 DEV DEV FS SCH ×4 (06:32→21:06)
[2017-08-31 06:33] LABS: HEMATOCRIT 26.9 % (36-48); HEMOGLOBIN 8.5 g/dL (12.0-16.0); MEAN CORPUSCULAR HEMOGLOBIN 26 pg (27-31); MEAN CORPUSCULAR HGB CONC 32 g/dL (33-37); MEAN CORPUSCULAR VOLUME 83 fL (80-94); PLATELET COUNT (AUTO) 412 K/uL (140-450); RED BLOOD CELL COUNT(AUTO) 3.24 MIL/uL (4.20-5.40); RED CELL DISTRIBUTION WIDTH 16.1 % (11.6-13.7); WHITE BLOOD COUNT (AUTO) 19.1 K/uL (4.8-10.8)
[2017-08-31 06:52] LABS: ANION GAP 14.8 (8-16); CARBON DIOXIDE 27.3 mmol/L (21-32); CREATININE 0.8 mg/dL (0.6-1.3); POTASSIUM 4.1 mmol/L (3.5-5.1)
[2017-08-31] MEDS: ALBUTEROL SULFATE/IPRATROPIU 3 ML SOL IH SCH ×3 (06:55→18:58)
[2017-08-31 06:59] LABS: MAGNESIUM 2.1 mg/dL (1.8-2.4); PHOSPHORUS 3.3 mg/dL (2.5-4.9)
--- NOTE | 2017-08-31 06:59 | NUR ---
RECEIVED PT ON CARESCAPE ON NOTED SETTINGS PT TRACH IS SECURE SIZE 8 PORTEX PT IN HF NOT ALERT BS COARSE I\L LAVAGE AND SX LG YELLOW I\L HHN GIVEN WITH 3 MG DUONEB NO DISTRESS NOTED BMV HOB CONT. POX IN PLACE ALARMS ARE ON AND AUDIBLE VENT PLUGGED INTO RED OUTLET
[2017-08-31 07:10] LABS: EOSINOPHILS % (MANUAL) 6 % (0-4); LYMPHOCYTES % (MANUAL) 5 % (20-46); MONOCYTES % (MANUAL) 6 % (5-12)
--- NOTE | 2017-08-31 07:16 | NUR ---
ENDORSED PLAN OF CARE TO AM RN. PATIENT IN STABLE CONDITION.
--- NOTE | 2017-08-31 07:22 | NUR ---
REPORT RECEIVED FROM LIBRARY SPECIALIST NURSE CONY CERNA AWAKE RESTING QUIETLY IN NAD, RESP EVEN UNLABORED WITH TRACH TO VENT, FIO2 70%, O2 SAT 98%, SKIN WARM DRY COLOR WNL, APPEARS IN NO PAIN OR DISCOMFORT, TUBE FEEDING ON GOING, IVF INFUSING, GARCIA DRAINING, PLAN OF CARE REVIEWED, NO IMMEDIATE NEEDS IDENTIFIED AT THIS TIME, CALL MARROQUIN WITHIN REACH, SIDE RAILS UP, BED LOCKED IN LOW POSITION, ALL ALARMS FUNCTIONING, WILL CONTINUE TO MONITOR.
[2017-08-31 07:58] VITALS: BP 120/63
[2017-08-31] MEDS: MULTIVITAMIN 5 ML ORASYR GT SCH (08:28)
[2017-08-31] MEDS: levETIRAcetam 100 MG/ML ORASYR GT SCH ×2 (08:28→20:55)
[2017-08-31] MEDS: SODIUM PHOS / POTASSIUM PHOS 1 PKT PDR PO SCH ×3 (08:28→16:36)
[2017-08-31] MEDS: ATORVASTATIN 20 MG TAB PO SCH (08:29)
[2017-08-31] MEDS: ASPIRIN 81 MG TAB.CHEW GT SCH (08:29)
[2017-08-31] MEDS: CALCIUM CARB/VIT-D 500 MG/200 IU 1 TAB GT SCH (08:29)
[2017-08-31] MEDS: LACTOBACILLUS RHAMNOSUS GG 1 EACH CAP PO SCH (08:29)
[2017-08-31] MEDS: POTASSIUM CHLORIDE 20% 40 MEQ/15 ML UDC GT SCH (08:30)
[2017-08-31] MEDS: METOPROLOL 50 MG TAB GT SCH ×2 (08:30→20:54)
[2017-08-31] MEDS: MAGNESIUM OXIDE 400 MG TAB PO SCH (08:30)
[2017-08-31] MEDS: FUROSEMIDE 20 MG/2 ML VIAL IVP SCH ×2 (08:31→20:55)
[2017-08-31] MEDS: SKINTEGRITY HYDROGEL TP SCH (08:38)
[2017-08-31] MEDS: NYSTATIN/TRIAMCINOLONE CRM 15 GM TUBE TP SCH ×2 (08:38→20:56)
--- NOTE | 2017-08-31 08:45 | NUR ---
AM MEDS GIVEN, DR RAMOS AT BEDSIDE FOR EVAL.
[2017-08-31] MEDS: DOCUSATE 100 MG/10 ML UDC GT SCH ×2 (09:00→21:00)
--- NOTE | 2017-08-31 09:00 | NUR ---
RT AT BEDSIDE, FIO2 DECREASED TO 60%, O2SAT 94%, WILL CONTINUE TO MONITOR.
[2017-08-31] MEDS: PSYLLIUM 12.2 GM/PKT GT SCH (09:11)
--- NOTE | 2017-08-31 10:15 | NUR ---
BED BATH GIVEN WITH UTILITY TELLER, LOOSE STOOL LARGE AMT, PRICARE DONE, POSITION CHANGED, GT SITE DRESSING CHANGED, SITE WNL, SACRAL WOUND CLEANED AND DRESSING CHANGED, LARGE SECRETION VIA TRACH SUCTIONED, PT SHAHIDA WELL.
--- NOTE | 2017-08-31 10:57 | NUR ---
VENT CHECK BS COARSE SX LG YELLOW DECREASE FIO2 TO 50 SPO2 100
--- NOTE | 2017-08-31 11:30 | NUR ---
BEDSIDE GLUCOSE 138, NO INSULIN NEEDED PER SLIDING SCALE. SECRETION AND COUGHING NOTED, SUCTIONED VIA TRACH.
[2017-08-31 12:00] VITALS: BP 96/64
--- NOTE | 2017-08-31 12:30 | NUR ---
PHLEBOTOMY AT BEDSIDE FOR BLOOD CULTURE, WILL START SCHEDULED ANTIBIOTIC WHEN DONE.
[2017-08-31] MEDS: VANCOMYCIN 1,000 MG VIAL PO SCH ×3 (12:40→23:19)
--- NOTE | 2017-08-31 12:40 | NUR ---
PER PHARMACY CASANDRA ANN TO GIVE PO/GT VANCOMYCIN DESPITE PT'S ALLERGY TO VANCO, WILL CLOSELY WATCH FOR ANY S/S OF ALLERGIC REACTION.
[2017-08-31] MEDS ORDERED: FUROSEMIDE 40 MG/4 ML VIAL IVP SCH (13:00)
--- NOTE | 2017-08-31 13:36 | NUR ---
PT IS ASLEEP HHN NOT GIVEN NO APPARENT DISTRESS
--- NOTE | 2017-08-31 13:45 | NUR ---
NEW BAG AND TUBING SET STARTED FOR PONCHO RAMACHANDRAN FEED CONTINUES AT 60ML/HR, WITH WATER 200ML/6HRS Addendum: 08/31/17 at 1751 by Payton Sams RN NO S/S OF ALLERGIC REACTION NOTED AT THIS TIME.
--- NOTE | 2017-08-31 14:38 | NUR ---
DR MURPHY AT BEDSIDE.
--- NOTE | 2017-08-31 15:55 | NUR ---
LARGE FOAMY CLEAR SECRETION SUCTIONED VIA TRACH AND MOUTH.
[2017-08-31 16:00] VITALS: BP 124/68
--- NOTE | 2017-08-31 16:30 | NUR ---
BEDSIDE GLUCOSE 111, NO INSULIN NEEDED PER SLIDING SCALE.
--- NOTE | 2017-08-31 16:52 | NUR ---
LENS MOUNTER AT BEDSIDE FOR POSITION CHANGE AND DIAPER CHANGE.
--- NOTE | 2017-08-31 17:40 | NUR ---
08/31/17 RD FOLLOW UP COMPLETED. PLEASE REFER TO NUTRITION ASSESSMENT UNDER CARE ACTIVITY FOR ESTIMATED NUTRITIONAL NEEDS. 1.CONTINUE CURRENT TUBE FEED TOLERATED. 2.RD TO FOLLOW-UP IN 2-3 DAYS PATIENT IS HIGH RISK. [address]
[2017-08-31] MEDS: PHARMACY COMMENTS MC SCH ×2 (17:46→23:19)
--- NOTE | 2017-08-31 18:00 | NUR ---
DR TIDWELL AT BEDSIDE
[2017-08-31] MEDS: PIPER/TAZO 3.375GM/D5W PREMIX 50 ML IV SCH ×2 (18:14→23:19)
--- NOTE | 2017-08-31 18:30 | NUR ---
URINE SAMPLE COLLECTED AND SENT TO LAB.
--- NOTE | 2017-08-31 19:08 | NUR ---
REPORT GIVEN TO WAREHOUSE SHIPPER NURSE RASHARD PT IN STABLE CONDITION, RT CESAR AT BEDSIDE AT THIS TIME, RT TO COLLECT SPUTUM CULTURE.
--- NOTE | 2017-08-31 19:10 | NUR ---
RECEIVED PT WITH EYES OPEN, ON TRACH TO VENT WITH FI02 AT 50%, RT AT BEDSIDE, VITAL SIGNS STABLE, ST ON TELE-130'S, AFEBRILE, SAT-99%, FLACC-0, G-TUBE ON-GOING, HOB ELEVATED AT ALL TIMES, IVF INFUSING WELL, GARCIA CATHETER IN PLACE WITH CLEAR YELLOW OUTPUT, SAFETY MEASURES IN PLACE, SIDE RAILS UP AND PADDED, WILL REPOSITION Q2H AND OFFLOAD PRESSURE AREAS, NEEDS ANTICIPATED.
--- NOTE | 2017-08-31 19:10 | NUR ---
RECEIVED PT STABLE ON VENT SUPPORT AT DOCUMENTED SETTINGS, SUCTIONED LARGE THICK COPIOUS YELLOWISH SECRETIONS, HHN TX GIVEN, TOLERATED WELL, NO RESP DISTRESS OR SOB NOTED AT THIS TIME, PORTEX 8 TRACH SECURED/PATENT/MIDLINE, ALARMS SET AND AUDIBLE, PULSE OX ON, AMBU BAG AT BEDSIDE, VENT PLUGGED INTO RED OUTLET, WILL CONT TO MONITOR.
[2017-08-31 20:00] VITALS: BP 111/72
[2017-08-31] MEDS: FAMOTIDINE 20 MG/2 ML VIAL IV SCH (20:54)
--- NOTE | 2017-08-31 21:10 | NUR ---
NO G-TUBE RESIDUAL NOTED, DUE MEDS ADMINISTERED, PT SAT IN THE 80'S, SUCTION SECRETION PRN, STILL IN THE 80'S, ST WITH 130'S HR ON TELE, PAGED RT CESAR, INCREASED FI02 TO 60%, SAT WENT UP TO 97-99%, HR TRENDING DOWN TO 120'S,
[2017-08-31 21:42] LABS: BILIRUBIN,URINE NEGATIVE (NEGATIVE); BLOOD, URINE 3+ (NEGATIVE); LEUKOCYTE ESTERASE ,URINE 1+ (NEGATIVE); NITRITE, URINE NEGATIVE (NEGATIVE); PH,URINE 6.5 (5.0-9.0); UGLUCOSE NEGATIVE (NEGATIVE)
[2017-08-31 21:43] LABS: APPEARANCE,URINE HAZY (CLEAR); COLOR,URINE STRAW (YELLOW)
[2017-08-31 21:54] LABS: RBC,URINE 50-80 /HPF (0-5); WBC,URINE 0-5 (RARE) /HPF (0-5)
--- NOTE | 2017-08-31 23:40 | NUR ---
VITAL SIGNS STABLE, ST-116, AFEBRILE, FLACC-0, IV ANTIBIOTIC INFUSING WELL, BM WITH SOFT STOOL MODERATE AMOUNT, NOT QUALIFIED FOR C-DIFF, PERINEAL CARE DONE, CONTINUE TO REPOSITION Q2H AND OFFLOAD PRESSURE AREAS, ORAL CARE DONE, CONTINUE TO MONITOR CLOSELY.
[2017-09-01] VITALS (12 sets, daily range): BP systolic 0–128; BP diastolic 0–75
[2017-09-01] MEDS: HYDRAGUARD CREAM TP SCH ×3 (00:48→13:00)
[2017-09-01] MEDS: metroNIDAZOLE 500 MG/NS PREMIX 100 ML IV SCH (04:32)
--- NOTE | 2017-09-01 04:54 | NUR ---
BM WITH SOFT BROWNISH STOOL MODERATE AMOUNT, NOT QUALIFIED FOR C-DIFF, DRESSING TO SACRAL WOUND CHANGED DUE TO SOILING, FLAGYL IVPB INFUSING WELL, MONITORED CLOSELY.
--- NOTE | 2017-09-01 05:35 | NUR ---
BLOOD SUGAR CHECKED WITH 129 RESULT, DUE ZOSYN IVPB ADMINISTERED, 40ML G-TUBE RESIDUAL NOTED, DUE SYNTHROID GIVEN, SUCTION SECRETION PRN, NO DISTRESS NOTED, MONITORED CLOSELY.
[2017-09-01] MEDS: VANCOMYCIN 1,000 MG VIAL PO SCH ×4 (05:37→23:47)
[2017-09-01] MEDS: PHARMACY COMMENTS MC SCH ×4 (05:37→23:47)
[2017-09-01] MEDS: PIPER/TAZO 3.375GM/D5W PREMIX 50 ML IV SCH ×4 (05:37→23:47)
[2017-09-01] MEDS: LEVOTHYROXINE 0.1 MG TAB GT SCH (05:37)
[2017-09-01] MEDS: LEVOTHYROXINE 0.025 MG TAB GT SCH (05:37)
[2017-09-01 06:16] LABS: RED BLOOD CELL COUNT(AUTO) 3.55 MIL/uL (4.20-5.40)
[2017-09-01 06:34] LABS: HEMATOCRIT 29.5 % (36-48); HEMOGLOBIN 9.5 g/dL (12.0-16.0); MEAN CORPUSCULAR HEMOGLOBIN 27 pg (27-31); MEAN CORPUSCULAR HGB CONC 32 g/dL (33-37); MEAN CORPUSCULAR VOLUME 83 fL (80-94); PLATELET COUNT (AUTO) 499 K/uL (140-450); RED CELL DISTRIBUTION WIDTH 16.5 % (11.6-13.7); WHITE BLOOD COUNT (AUTO) 19.6 K/uL (4.8-10.8)
[2017-09-01] MEDS: BLOOD GLUCOSE MONITORING 1 DEV DEV FS SCH ×4 (06:37→20:37)
[2017-09-01 06:40] LABS: ANION GAP 13.4 (8-16); CARBON DIOXIDE 29.3 mmol/L (21-32); CREATININE 0.8 mg/dL (0.6-1.3); POTASSIUM 3.7 mmol/L (3.5-5.1)
[2017-09-01] MEDS: ALBUTEROL SULFATE/IPRATROPIU 3 ML SOL IH SCH ×3 (07:03→19:18)
--- NOTE | 2017-09-01 07:03 | NUR ---
RECEIVED ON A VolofySCAPE R860 VENTILATOR PLUGGED INTO RED OUTLET TOLERATING WELL WITHOUT INCIDENT TO A PORTEX DCT #8 AIRWAY SECURED WITH A MARIANNE TRACH TIE CUFF PRESSURE CHECKED NOTED AMBU BAG NOTED AT HOB LOC AWAKE GOOD CHEST RISE BREATH SOUNDS COARSE RHONCHI BILATERAL DEEP TRACHEAL SUCTION FOR LARGE THICK YELLOW SECRETIONS AIRWAY PATENT
--- NOTE | 2017-09-01 07:15 | NUR ---
PT AWAKE, NO DISTRESS NOTED, RT AT BEDSIDE, REPORT GIVEN TO RN CABRERA FOR CONTINUITY OF CARE.
--- NOTE | 2017-09-01 07:34 | NUR ---
RECEIVED REPORT FROM FORENSICS TEAM DIRECTOR NURSE AT BEDSIDE FOR CONTINUITY CARE. PATIENT RESTING WITH EYES CLOSED . WILL CONT TO MONITOR PT.
[2017-09-01] MEDS: ATORVASTATIN 20 MG TAB PO SCH (08:41)
[2017-09-01] MEDS: MAGNESIUM OXIDE 400 MG TAB PO SCH (08:41)
[2017-09-01] MEDS: LACTOBACILLUS RHAMNOSUS GG 1 EACH CAP PO SCH (08:41)
--- NOTE | 2017-09-01 08:41 | NUR ---
ADMINISTERED SCHEDULED MEDICATIONS THIS AM. TOLERATED WELL. GT PATENT AND INTACT. RESIDUAL OF 10MLS. FEEDING STOPPED.NANI CARE PROVIDED, WOUND TX PERFORMED T&R. HOB ELEVATED PT DESATURATED IN MID 80S HOB ELEVATED ORAL AND DEEP SUCTION PERFORMED O2 UP TP 91%. FEDDING RESTARTED. WILL CONT TO MONITOR PT.
[2017-09-01] MEDS: ASPIRIN 81 MG TAB.CHEW GT SCH (08:42)
[2017-09-01] MEDS: METOPROLOL 50 MG TAB GT SCH ×2 (08:42→20:24)
[2017-09-01] MEDS: CALCIUM CARB/VIT-D 500 MG/200 IU 1 TAB GT SCH (08:42)
[2017-09-01] MEDS: PSYLLIUM 12.2 GM/PKT GT SCH (08:42)
[2017-09-01] MEDS: SODIUM PHOS / POTASSIUM PHOS 1 PKT PDR PO SCH ×3 (08:42→17:20)
[2017-09-01] MEDS: POTASSIUM CHLORIDE 20% 40 MEQ/15 ML UDC GT SCH (08:43)
[2017-09-01] MEDS: levETIRAcetam 100 MG/ML ORASYR GT SCH ×2 (08:43→20:23)
[2017-09-01] MEDS: MULTIVITAMIN 5 ML ORASYR GT SCH (08:43)
[2017-09-01] MEDS: FUROSEMIDE 20 MG/2 ML VIAL IVP SCH ×2 (08:44→20:24)
[2017-09-01] MEDS: NACL 0.9% 1,000 ML IV SCH ×2 (08:50→22:10)
[2017-09-01 08:51] LABS: EOSINOPHILS % (MANUAL) 3 % (0-4); LYMPHOCYTES % (MANUAL) 11 % (20-46); MONOCYTES % (MANUAL) 6 % (5-12)
[2017-09-01] MEDS: DOCUSATE 100 MG/10 ML UDC GT SCH ×2 (09:00→20:23)
[2017-09-01] MEDS: NYSTATIN/TRIAMCINOLONE CRM 15 GM TUBE TP SCH ×2 (09:26→20:25)
[2017-09-01] MEDS: SKINTEGRITY HYDROGEL TP SCH (09:26)
--- NOTE | 2017-09-01 09:36 | NUR ---
AWAKE ON LEFT SIDE BREATH SOUNDS RHONCHI BILATERAL DEEP TRACHEAL SUCTION FOR SMALL THIN YELLOW SECRETIONS MASIMO RADICAL-7 CONTINUOS PULSE OXIMETRY AT BEDSIDE ON AND FUNCTIONING WELL LOW SATURATION ALARM SET AT 90%
--- NOTE | 2017-09-01 10:30 | NUR ---
RECEIVED PT IN STABLE CONDITION FROM AM NURSE. PT IS ASLEEP. ON TRACH TO VENT FIO2 45% O2 SAT 98%-99%. WITH NO ACUTE RESPIRATORY DISTRESS NOTED. APHASIC. ST ON THE TELE MONITOR. BEDREST. WITH IVF INFUSING WELL ON THE RT FA #[id number]. CLEAR AND PATENT, HOB ELEVATED . WITH GT FEEDING TOLERATING WELL. NO RESIDUAL NOTED.WITH GARCIA CATH TO GRAVITY, WITH LIGHT YELLOW URINE DRAINING WELL. ON CONTACT ISOLATION . BED ON LOW POSITION. SIDE RAILS UP WITH PADS FOR SEIZURE PRECAUTIONS. CALL LIGHT PLACED WITHIN REACH. WILL CONTINUE TO MONITOR. Addendum: 09/01/17 at 1999 by Mary Tilley RN CANCEL ABOVE NOTES. CAREGIVER MISTAKE.
--- NOTE | 2017-09-01 10:30 | NUR ---
PT IN BED WITH EYES OPEN. NO ACUTE DISTRESS NOTED. O2 SAT @ 95%. HR 108. PT. LYING ON LEFT SIDE. HOB ELEVATED. FEEDING ON . WILL CONT TO MONITOR PT.
--- NOTE | 2017-09-01 11:00 | NUR ---
AWAKE STABLE NO PULMONARY DISTRESS NOTED GOOD CHEST RISE SATURATION 98% ON FIO2 OF 50% TITRATED FIO2 TO 45% CABRERA/RN NOTIFIED
[2017-09-01] MEDS: INSULIN LISPRO SLIDING SCALE 100 UNITS/ML VIAL SUBQ PRN (12:01)
--- NOTE | 2017-09-01 12:30 | NUR ---
PATIENT IN BED WITH EYES OPEN. NO ACUTE DISTRESS NOTED. NO COUGHING EPISODES . ORAL CARE PROVIDED.WILL CONT TO MONITOR PT.
--- NOTE | 2017-09-01 13:10 | NUR ---
AWAKE NO SOB NOTED GOOD CHEST RISE DEEP TRACHEAL SUCTION FOR MODERATE THIN YELLOW SECRETIONS AIRWAY PATENT OROPHARYNX SUCTION FOR LARGE THIN PALE YELLOW TO CLEAR SECRETIONS
--- NOTE | 2017-09-01 14:44 | NUR ---
ASLEEP RESTING COMFORTABLY NO APPARENT RESPIRATORY DISTRESS NOTED GOOD CHEST RISE AND AERATION THROUGHOUT LUNG SANTO
--- NOTE | 2017-09-01 14:45 | NUR ---
RT IN WITH PATIENT . PT RESTING WITH EYES CLOSED. RESP EVEN AND UNLABORED. NO ACUTE DISTRESS NOTED. WILL CONT TO MONITOR PT.
--- NOTE | 2017-09-01 16:30 | NUR ---
PATIENT IN BED RESTING WITH EYES CLOSED. NO ACUTE DISTRESS NOTED. CHANGED FIBERSOURCE FEEDING. PROGRAMED INDICATED. PATIENT TOLERATED WELL. HOB ELEVATED. FEEDING RESUMED. WILL CONT TO MONITOR PT.
--- NOTE | 2017-09-01 16:48 | NUR ---
AWAKE NO SOB NOTED TOLERATING VENTILATORY SUPPORT WELL WITHOUT INCIDENT GOOD CHEST RIS HOLLY TRACHEAL SUCTION FOR MODERATE THIN YELLOW SECRETIONS AIRWAY PATENT
--- NOTE | 2017-09-01 18:00 | NUR ---
PT IN BED WITH EYES CLOSED. NO ACUTE DISTRESS NOTED. NO COUGHING. ORAL CARE PROVIDED. WILL CONT TO MONITOR PT.
--- NOTE | 2017-09-01 19:20 | NUR ---
REPORT GIVEN TO [employer] OPERATOR NURSE PEYTON, PT RESTING QUIETLY WITH EYES CLOSED, RESP EVEN UNLABORED WITH TRACH TO VENT AT 45% FIOS, IVF INFUSING WELL SITE WNL, FEEDING ON-GOING AT 60ML/HR, GARCIA DRAINING, RESP TECH AT BEDSIDE AT THIS TIME.
--- NOTE | 2017-09-01 19:30 | NUR ---
RECEIVED PT IN STABLE CONDITION FROM AM NURSE. PT IS ASLEEP. ON TRACH TO VENT FIO2 45% O2 SAT 98%-99%. WITH NO ACUTE RESPIRATORY DISTRESS NOTED. APHASIC. ST ON THE TELE MONITOR. BEDREST. WITH IVF INFUSING WELL ON THE RT FA #[id number]. CLEAR AND PATENT, HOB ELEVATED . WITH GT FEEDING TOLERATING WELL. NO RESIDUAL NOTED.WITH GARCIA CATH TO GRAVITY, WITH LIGHT YELLOW URINE DRAINING WELL. ON CONTACT ISOLATION . BED ON LOW POSITION. SIDE RAILS UP WITH PADS FOR SEIZURE PRECAUTIONS. CALL LIGHT PLACED WITHIN REACH. WILL CONTINUE TO MONITOR.
--- NOTE | 2017-09-01 20:00 | NUR ---
AMEND TO THE PREVIOUS NOTES. PT OUT OF ISOLATION .
[2017-09-01] MEDS: FAMOTIDINE 20 MG/2 ML VIAL IV SCH (20:23)
--- NOTE | 2017-09-01 20:37 | NUR ---
BLOOD SUGAR WAS CHECKED RESULT 131. NO INSULIN NEEDED.
--- NOTE | 2017-09-01 21:30 | NUR ---
SUCTIONED PT BOTH ON MOUTH AND TRACH. OBTAINED WHITISH SECRETIONS. NO RESPIRATORY DISTRESS NOTED.
--- NOTE | 2017-09-01 22:30 | NUR ---
PT HAD A MODERATE SOFT YELLOWISH STOOL. CLEANED AND KEPT DRY. HYDRA GUARD APPLIED TO PERINEAL AREA.
[2017-09-02] VITALS: BP 122/55
--- NOTE | 2017-09-02 01:00 | NUR ---
PT REPOSITIONED FOR COMFORT. NO DISTRESS NOTED.
[2017-09-02] MEDS: HYDRAGUARD CREAM TP SCH ×3 (01:19→12:54)
--- NOTE | 2017-09-02 02:30 | NUR ---
SUCTIONED PT THRU THE MOUTH AND TRACH. OBTAINED WHITISH SECRETIONS. NO DISTRESS NOTED. O2 SAT 97% ON FIO2 40 %.
[2017-09-02 03:43] VITALS: BP 114/60
--- NOTE | 2017-09-02 05:00 | NUR ---
HAD ANOTHER SOFT BM , LARGE IN AMOUNT. CLEANED AND KEPT DRY. REPOSITIONED FOR COMFORT. RT
[2017-09-02] MEDS: VANCOMYCIN 1,000 MG VIAL PO SCH ×3 (05:35→17:26)
[2017-09-02] MEDS: PHARMACY COMMENTS MC SCH ×3 (05:35→17:26)
[2017-09-02] MEDS: PIPER/TAZO 3.375GM/D5W PREMIX 50 ML IV SCH ×3 (05:35→17:26)
[2017-09-02] MEDS: LEVOTHYROXINE 0.1 MG TAB GT SCH (05:36)
[2017-09-02] MEDS: LEVOTHYROXINE 0.025 MG TAB GT SCH (05:36)
[2017-09-02 05:46] LABS: HEMOGLOBIN 8.7 g/dL (12.0-16.0); MEAN CORPUSCULAR HEMOGLOBIN 27 pg (27-31); MEAN CORPUSCULAR HGB CONC 32 g/dL (33-37); MEAN CORPUSCULAR VOLUME 83 fL (80-94); PLATELET COUNT (AUTO) 435 K/uL (140-450); RED BLOOD CELL COUNT(AUTO) 3.24 MIL/uL (4.20-5.40); RED CELL DISTRIBUTION WIDTH 16.2 % (11.6-13.7); WHITE BLOOD COUNT (AUTO) 21.8 K/uL (4.8-10.8)
[2017-09-02] MEDS: NACL 0.9% 1,000 ML IV SCH ×3 (05:47→20:47)
[2017-09-02] MEDS: BLOOD GLUCOSE MONITORING 1 DEV DEV FS SCH ×4 (06:03→20:25)
--- NOTE | 2017-09-02 06:18 | NUR ---
ASLEEP. NO RESPIRATORY DISTRESS NOTED ON THE VENT FIO2 40 %, O2 SAT 97%.
[2017-09-02 06:21] LABS: MAGNESIUM 2.1 mg/dL (1.8-2.4); PHOSPHORUS 3.3 mg/dL (2.5-4.9)
--- NOTE | 2017-09-02 07:16 | NUR ---
ENDORSED PT IN STABLE CONDITION TO AM NURSE.
--- NOTE | 2017-09-02 07:17 | NUR ---
RECEIVED REPORT FROM THE PARTS IDENTIFIER NURSE AT BEDSIDE FOR CONTINUITY OF CARE. PT HAS HER EYES OPEN. PT APHASIC. PT IS BEDBOUND. SKIN- REDNESS ON PERINEAL AREA, UNDER THE BREAST (REDNESS IMPROVING), AND SACRAL AREA. DRESSING INTACT. TRACH TO VENT. AT 40%, RESP 22, O2 SAT AT 98%. GTUBE IN PLACE. FEEDING: FIBERSOURCE AT 60CC/HR AND WATER FLUSH AT 200ML Q 6 HR. IV ON R FA 22G NS AT 75ML/HR. GARCIA CATH, BRIGHT CLEAR, YELLOW URINE, 200ML IN BAG. RT IS HERE. WILL CONTINUE TO MONITOR PT.
[2017-09-02] MEDS: ALBUTEROL SULFATE/IPRATROPIU 3 ML SOL IH SCH ×3 (07:26→19:25)
[2017-09-02 07:44] LABS: ANION GAP 11.8 (8-16); CARBON DIOXIDE 28.9 mmol/L (21-32); CREATININE 0.9 mg/dL (0.6-1.3); POTASSIUM 3.7 mmol/L (3.5-5.1)
--- NOTE | 2017-09-02 07:45 | NUR ---
V/S WITHIN NORMAL RANGE. UPDATED THE BOARD. LABS FOR THIS MORNING: WBC FROM 19.6 YESTERDAY TO 21.8. WILL NOTIFY . LBM: 09/02. WILL CONTINUE TO MONITOR PT.
[2017-09-02 07:54] LABS: EOSINOPHILS % (MANUAL) 8 % (0-4); LYMPHOCYTES % (MANUAL) 11 % (20-46); MONOCYTES % (MANUAL) 9 % (5-12)
[2017-09-02 08:00] VITALS: BP 125/71
[2017-09-02] MEDS: CALCIUM CARB/VIT-D 500 MG/200 IU 1 TAB GT SCH (09:29)
[2017-09-02] MEDS: MAGNESIUM OXIDE 400 MG TAB PO SCH (09:29)
[2017-09-02] MEDS: METOPROLOL 50 MG TAB GT SCH ×2 (09:29→20:26)
[2017-09-02] MEDS: ATORVASTATIN 20 MG TAB PO SCH (09:29)
[2017-09-02] MEDS: ASPIRIN 81 MG TAB.CHEW GT SCH (09:29)
[2017-09-02] MEDS: SODIUM PHOS / POTASSIUM PHOS 1 PKT PDR PO SCH ×3 (09:30→17:26)
[2017-09-02] MEDS: PSYLLIUM 12.2 GM/PKT GT SCH (09:30)
[2017-09-02] MEDS: LACTOBACILLUS RHAMNOSUS GG 1 EACH CAP PO SCH (09:30)
[2017-09-02] MEDS: DOCUSATE 100 MG/10 ML UDC GT SCH ×2 (09:30→20:25)
[2017-09-02] MEDS: FUROSEMIDE 20 MG/2 ML VIAL IVP SCH ×2 (09:30→20:26)
[2017-09-02] MEDS: MULTIVITAMIN 5 ML ORASYR GT SCH (09:31)
[2017-09-02] MEDS: levETIRAcetam 100 MG/ML ORASYR GT SCH ×2 (09:31→20:26)
[2017-09-02] MEDS: POTASSIUM CHLORIDE 20% 40 MEQ/15 ML UDC GT SCH (09:31)
[2017-09-02] MEDS: SKINTEGRITY HYDROGEL TP SCH (09:34)
[2017-09-02] MEDS: NYSTATIN/TRIAMCINOLONE CRM 15 GM TUBE TP SCH ×2 (09:34→20:27)
--- NOTE | 2017-09-02 09:54 | NUR ---
ASSISTED SOUS CHEF WITH MORNING ADLS. ADMINISTERED MORNING MEDS VIA GTUBE. CHECKED FOR PLACEMENT, RESIDUAL-0, PATENCY. MEDS AND FLUSH TOTAL: 480ML. PT TOLERATED WELL. HUNG NEW BAG OF FIBERSOURCE. RESTARTED THE FEEDING. IV STILL INFUSING. PT IS SATURATING AT 98%. WILL CONTINUE TO MONITOR PT.
[2017-09-02] MEDS ORDERED: MAG400 GT (10:50)
[2017-09-02] MEDS ORDERED: HYDGEL TP ×2 (10:50)
[2017-09-02] MEDS ORDERED: PHOS1PDR4 PO (10:50)
[2017-09-02] MEDS ORDERED: LACT10CA PO (10:50)
[2017-09-02] MEDS ORDERED: LAS20I IVP (10:50)
[2017-09-02] MEDS ORDERED: Hydraguard TP ×3 (10:50)
[2017-09-02] MEDS ORDERED: NYSTRC TP (10:50)
[2017-09-02] MEDS ORDERED: TYL325S RC (10:50)
[2017-09-02] MEDS ORDERED: GLUC-805 FS (10:50)
[2017-09-02] MEDS ORDERED: METPCK GT (10:50)
[2017-09-02] MEDS ORDERED: D50SYR IVP (10:50)
[2017-09-02] MEDS ORDERED: ATOR20TA40 PO (10:50)
[2017-09-02 12:00] VITALS: BP 130/70
--- NOTE | 2017-09-02 14:00 | NUR ---
09/02/17 RD FOLLOW UP COMPLETED. PLEASE REFER TO NUTRITION ASSESSMENT UNDER CARE ACTIVITY FOR ESTIMATED NUTRITIONAL NEEDS. CONTINUE CURRENT TUBE FEED TOLERATED, THIS IS PROVIDING 1440 KCALS AND 65 GM PRO/DAY TO MEET 100% ESTIMATED ENERGY AND PROTEIN NEEDS . RD TO FOLLOW-UP IN 2-3 DAYS PATIENT IS HIGH RISK. GRZEOGRZ LAMBERT, RD
[2017-09-02 16:00] VITALS: BP 109/44
--- NOTE | 2017-09-02 19:05 | NUR ---
ENDORSED PT TO THE NIGHTSHIFT NURSE AT BEDSIDE FOR CONTINUITY OF CARE. PT IN STABLE CONDITION.
--- NOTE | 2017-09-02 19:15 | NUR ---
RECEIVED PT IN STABLE CONDITION FROM AM NURSE. ON TRACH TO VENT FIO2 40 %. O2 SAT 96%. NO RESPIRATORY DISTRESS NOTED. AWAKE BUT APHASIC. BEDBOUND. WITH GT FEEDING . NO RESIDUAL NOTED. HAS GARCIA CATHETER TO GRAVITY. WITH CLEAR YELLOW URINE OUTPUT. BLE SCD MACHINE ON. HAS SACRAL PRESSURE ULCER . DRESSING IN PLACED. SOME REDNESS ON NANI AREA. AMI BREAST ALMOST CLEAR. NO REDNESS NOTED. BED ON LOW POSITION. SIDE RAILS UP X2, PADDED FOR SEIZURE PRECAUTIONS. FREQUENT ROUNDS NEEDED. WILL CONTINUE TO MONITOR.
[2017-09-02 19:45] VITALS: BP 106/62
--- NOTE | 2017-09-02 20:00 | NUR ---
ALEX RT IN ROOM . GAVE PT BREATHING TREATMENT. ALSO SUCTIONED PT . NO DISTRESS NOTED.
[2017-09-02] MEDS: FAMOTIDINE 20 MG/2 ML VIAL IV SCH (20:25)
--- NOTE | 2017-09-02 20:25 | NUR ---
BLOOD SUGAR WAS CHECKED RESULT 124. NO INSULIN NEEDED.
--- NOTE | 2017-09-02 22:00 | NUR ---
REPOSITIONED FOR COMFORT. HAD A SOFT BM. CLEANED AND KEPT DRY. APPLIED HYDRA GUARD TO NANI AREA.
[2017-09-03] MEDS ORDERED: WATER STERILE 20 ML MC ONE
[2017-09-03] MEDS: VANCOMYCIN 1,000 MG VIAL PO SCH ×2 (00:12→05:19)
[2017-09-03] MEDS: PIPER/TAZO 3.375GM/D5W PREMIX 50 ML IV SCH ×5 (00:12→23:37)
[2017-09-03] MEDS: PHARMACY COMMENTS MC SCH ×5 (00:12→23:37)
[2017-09-03] MEDS: HYDRAGUARD CREAM TP SCH ×3 (00:16→13:21)
--- NOTE | 2017-09-03 00:20 | NUR ---
REPOSITIONED FOR COMFORT. SUCTIONED MOUTH AND TRACH .WITH WHITISH SECRETIONS OBTAINED. NO DISTRESS NOTED. O2 SAT 100%.
[2017-09-03 00:30] VITALS: BP 131/66
[2017-09-03 05:06] VITALS: BP 119/77
[2017-09-03] MEDS: ACETAMINOPHEN 325 MG SUPP RC PRN (05:14)
--- NOTE | 2017-09-03 05:14 | NUR ---
TEMP 100.4 , SKIN HOT TO TOUCH, HR 125/MIN. COOLING MEASURE DONE. TYLENOL SUPP GIVEN ORDERED. WILL CONTINUE TO MONITOR.
[2017-09-03] MEDS: LEVOTHYROXINE 0.1 MG TAB GT SCH (06:14)
[2017-09-03] MEDS: LEVOTHYROXINE 0.025 MG TAB GT SCH (06:14)
[2017-09-03] MEDS: BLOOD GLUCOSE MONITORING 1 DEV DEV FS SCH ×4 (06:15→21:05)
--- NOTE | 2017-09-03 06:15 | NUR ---
LATEST TEMP 98.2 . WILL CONTINUE TO MONITOR.
[2017-09-03] MEDS: ALBUTEROL SULFATE/IPRATROPIU 3 ML SOL IH SCH ×3 (07:14→19:17)
--- NOTE | 2017-09-03 07:20 | NUR ---
ENDORSED PT IN STABLE CONDITION TO AM NURSE.
--- NOTE | 2017-09-03 07:21 | NUR ---
RECEIVED REPORT FROM SPORTS COMPLEX ATTENDANT NURSE. PATIENT LYING IN BED SLEEPING, AROUSABLE BY VOICE. NO DISTRESS NOTED. FLACC 0. PATIENT TRACH TO VENTILATOR DEPENDENT WITH VENT SETTINGS: FIO2:40, RESP:12, VT:400, PEEP:5. AWAKE, APHASIC, NON-VERBAL. HAS SACRAL PRESSURE ULCER WITH DRESSING THAT IS DRY AND INTACT. PERINEAL REDNESS NOTED. GARCIA CATHETER IN PLACE, DRAINING CLEAR, YELLOW URINE. IV SITE INTACT, PATENT AND INFUSING IVF PER ORDERS. V/S STABLE, NO FEVER AT THIS TIME. GTUBE SITE INTACT, PATENT, AND FEEDING ON CONTINUOUS PER ORDERS. LUNGS SOUNDS HAS WHEEZING. ABDOMEN SOFT, NON-DISTENDED. REVIEWED PLAN OF CARE WITH PATIENT, UNABLE TO COMPREHEND, REINFORCEMENT NEEDED. SAFETY MEASURES IN PLACE, CALL LIGHT WITHIN REACH, SEIZURE PRECAUTIONS IN PLACE, FALL PRECAUTIONS IN PLACE. WILL CONTINUE TO MONITOR.
[2017-09-03 08:00] VITALS: BP 121/55
[2017-09-03] MEDS: METOPROLOL 50 MG TAB GT SCH ×2 (09:00→21:00)
[2017-09-03] MEDS: POTASSIUM CHLORIDE 20% 40 MEQ/15 ML UDC GT SCH (09:16)
[2017-09-03 09:17] LABS: ANION GAP 13.1 (8-16); CARBON DIOXIDE 26.4 mmol/L (21-32); CREATININE 0.9 mg/dL (0.6-1.3); POTASSIUM 3.5 mmol/L (3.5-5.1)
[2017-09-03] MEDS: DOCUSATE 100 MG/10 ML UDC GT SCH ×2 (09:17→20:25)
[2017-09-03] MEDS: levETIRAcetam 100 MG/ML ORASYR GT SCH ×2 (09:17→20:25)
[2017-09-03] MEDS: MULTIVITAMIN 5 ML ORASYR GT SCH (09:18)
[2017-09-03 09:19] LABS: MAGNESIUM 1.9 mg/dL (1.8-2.4)
[2017-09-03] MEDS: PSYLLIUM 12.2 GM/PKT GT SCH (09:19)
[2017-09-03] MEDS: SODIUM PHOS / POTASSIUM PHOS 1 PKT PDR PO SCH ×3 (09:19→17:37)
[2017-09-03] MEDS: FUROSEMIDE 20 MG/2 ML VIAL IVP SCH ×2 (09:19→21:00)
[2017-09-03] MEDS: MAGNESIUM OXIDE 400 MG TAB PO SCH (09:19)
[2017-09-03] MEDS: ASPIRIN 81 MG TAB.CHEW GT SCH (09:19)
[2017-09-03] MEDS: LACTOBACILLUS RHAMNOSUS GG 1 EACH CAP PO SCH (09:20)
[2017-09-03] MEDS: ATORVASTATIN 20 MG TAB PO SCH (09:20)
[2017-09-03] MEDS: CALCIUM CARB/VIT-D 500 MG/200 IU 1 TAB GT SCH (09:20)
[2017-09-03] MEDS: NYSTATIN/TRIAMCINOLONE CRM 15 GM TUBE TP SCH ×2 (09:21→20:39)
--- NOTE | 2017-09-03 09:30 | NUR ---
PATIENT LYING IN BED SLEEPING, AROUSABLE BY VOICE. NO DISTRESS NOTED. FLACC 0. RESPIRATIONS EVEN, UNLABORED, VENT TO TRACH DEPENDENT. VENT SETTING UNCHANGED. SUCTIONED PATIENT. SCHEDULED MEDICATIONS DUE GIVEN. PATIENT TOLERATED WELL. ASSISTED SCIENTIFIC DIRECTOR IN CLEANING AND REPOSITIONING PATIENT. CHANGED DRESSING ON COCCYX AREA, CREAMS APPLIED PER ORDERS. SAFETY MEASURES IN PLACE, CALL LIGHT WITHIN REACH, FALL PREVENTIONS IN PLACE, SEIZURE PRECAUTIONS IN PLACE. WILL CONTINUE TO MONITOR.
[2017-09-03 09:50] LABS: HEMATOCRIT 27.8 % (36-48); HEMOGLOBIN 8.7 g/dL (12.0-16.0); MEAN CORPUSCULAR HEMOGLOBIN 26 pg (27-31); MEAN CORPUSCULAR HGB CONC 31 g/dL (33-37); MEAN CORPUSCULAR VOLUME 84 fL (80-94); PLATELET COUNT (AUTO) 368 K/uL (140-450); RED BLOOD CELL COUNT(AUTO) 3.31 MIL/uL (4.20-5.40); RED CELL DISTRIBUTION WIDTH 16.3 % (11.6-13.7); WHITE BLOOD COUNT (AUTO) 21.7 K/uL (4.8-10.8)
[2017-09-03 10:01] LABS: EOSINOPHILS % (MANUAL) 1 % (0-4); LYMPHOCYTES % (MANUAL) 14 % (20-46); MONOCYTES % (MANUAL) 6 % (5-12)
[2017-09-03] MEDS: SKINTEGRITY HYDROGEL TP SCH (11:41)
[2017-09-03] MEDS: NACL 0.9% 1,000 ML IV SCH ×2 (11:54→14:10)
[2017-09-03 12:00] VITALS: BP 119/65
--- NOTE | 2017-09-03 12:00 | NUR ---
PATIENT LYING IN BED SLEEPING, AROUSABLE BY VOICE. NO DISTRESS NOTED. FLACC 0. CONDITION UNCHANGED. VENTILATOR SETTING UNCHANGED. ORAL CARE PROVIDED. SAFETY MEASURES IN PLACE, CALL LIGHT WITHIN REACH. WILL CONTINUE TO MONITOR.
[2017-09-03] MEDS ORDERED: VANCOMYCIN 1,000 MG VIAL GT SCH (13:19)
--- NOTE | 2017-09-03 13:26 | NUR ---
PATIENT LYING IN BED COMFORTABLY. RT AT BEDSIDE PERFORMING BREATHING TREATMENT. OTHER SCHEDULED MEDICATIONS DUE GIVEN. NO DISTRESS NOTED. VENTILATOR SETTINGS UNCHANGED. SAFETY MEASURES IN PLACE, CALL LIGHT WITHIN REACH. WILL CONTINUE TO MONITOR.
--- NOTE | 2017-09-03 14:47 | NUR ---
CM NOTE PER MADDIE OF [facility] PH# [phone], PATIENT CAN GO BACK TO [address] SKY WHEN PATIENT IS READY FOR DISCHARGE, NUMBER TO CALL FOR REPORT PH# [phone]. DALTON OROPEZA AWARE.
--- NOTE | 2017-09-03 15:30 | NUR ---
I contacted General acute hospital ([facility] [place]) and I spoke to Ramona and asked for Steve. Per Ramona Wilson was not in today but she was able to assist me. I Informed her of Patient's possible discharge on Wednesday09/05/17 after patient's Cultures results and patient is clear for discharge. I also added that patient will need an isolation bed and colonized. Ramona stated that they will be able to take patient back if Colonized in isolation. I asked if she had received my faxed MD Pre-notification order for Wednesday discharge. She stated Yes, thank me for information and faxed MD order and ended call.
--- NOTE | 2017-09-03 15:44 | NUR ---
PATIENT LYING IN BED SLEEPING, AROUSABLE BY VOICE. NO DISTRESS NOTED. FLACC 0. RESPIRATIONS EVEN, UNLABORED, TRACH TO VENT DEPENDENT. CONDITION UNCHANGED. SAFETY MEASURES IN PLACE, CALL LIGHT WITHIN REACH. WILL CONTINUE TO MONITOR.
[2017-09-03 16:00] VITALS: BP 123/60
--- NOTE | 2017-09-03 17:19 | NUR ---
PT SUCTIONED OBTAINED MODERATE AMOUNT OF PALE YELLOW SECRETIONS. TRACH IS SECURE WITH A PATENT AIRWAY. PT REMAINS ON DOCUMENTED VENT SETTINGS NO CHANGES MADE. VENT ALARMS REMAIN ON AND FUNCTIONING. PT IS NOT IN ANY DISTRESS AT THIS TIME.
[2017-09-03] MEDS: VANCOMYCIN 1,000 MG VIAL GT SCH ×2 (17:37→23:37)
--- NOTE | 2017-09-03 17:46 | NUR ---
PATIENT LYING IN BED COMFORTABLY. NO DISTRESS NOTED. FLACC 0. CONDITION UNCHANGED. SUCTIONED PATIENT. SCHEDULED MEDICATIONS DUE GIVEN. SAFETY MEASURES IN PLACE, CALL LIGHT WITHIN REACH. WILL CONTINUE TO MONITOR.
--- NOTE | 2017-09-03 19:29 | NUR ---
GAVE REPORT TO FUSING MACHINE FEEDER NURSE FOR CONTINUITY OF CARE. PATIENT IN STABLE CONDITION.
--- NOTE | 2017-09-03 19:30 | NUR ---
RECEIVED REPORT FROM DAY SHIFT NURSE. PT IS APHASIC, ON A TRACH TO VENT WITH FIO2@40, VT 400, AND PEEP 5. 22G IV TO RIGHT FOREARM INFUSING NS@75ML/HR. PT IS BEDBOUND. PT HAS SACRAL PRESSURE ULCER. UPDATED BOARD. VITAL SIGNS WNL. PT IN STABLE CONDITION, NO SIGNS OF DISTRESS NOTED. BED IN LOWEST POSITION, CALL LIGHT WITHIN REACH. WILL CONTINUE TO MONITOR.
[2017-09-03 19:55] VITALS: BP 109/43
[2017-09-03] MEDS: FAMOTIDINE 20 MG/2 ML VIAL IV SCH (20:24)
--- NOTE | 2017-09-03 20:43 | NUR ---
CALLED ON RESIDENTS PHONE TO ASK IF IT IS OK TO GIVE LOPRESSOR AND LASIX WITH BLOOD PRESSURE BEING 104/59 AT THE MOMENT, DR YOUNGER SAID IT WAS OK TO HOLD MEDICATIONS. WILL NOT ADMINISTER LOPRESSOR AND LASIX. ADMINISTERED OTHER SCHEDULED MEDICATIONS, PT TOLERATED WELL. PT STABLE, NO S/S OF DISTRESS NOTED. CALL LIGHT WITHIN REACH, WILL CONTINUE TO MONITOR.
[2017-09-04] VITALS (11 sets, daily range): BP systolic 0–137; BP diastolic 0–71
--- NOTE | 2017-09-04 | NUR ---
VITAL SIGNS WITHIN NORMAL LIMITS. PT STABLE, NO S/S OF DISTRESS NOTED. CALL LIGHT WITHIN REACH, WILL CONTINUE TO MONITOR.
[2017-09-04] MEDS: HYDRAGUARD CREAM TP SCH ×3 (01:50→13:04)
--- NOTE | 2017-09-04 04:00 | NUR ---
VITAL SIGNS WITHIN NORMAL LIMITS. PT STABLE, NO S/S OF DISTRESS NOTED. CALL LIGHT WITHIN REACH, WILL CONTINUE TO MONITOR.
[2017-09-04] MEDS: NACL 0.9% 1,000 ML IV SCH ×2 (04:20→16:25)
[2017-09-04] MEDS: LEVOTHYROXINE 0.025 MG TAB GT SCH (06:17)
[2017-09-04] MEDS: PIPER/TAZO 3.375GM/D5W PREMIX 50 ML IV SCH (06:17)
[2017-09-04] MEDS: VANCOMYCIN 1,000 MG VIAL GT SCH (06:17)
[2017-09-04] MEDS: LEVOTHYROXINE 0.1 MG TAB GT SCH (06:17)
[2017-09-04] MEDS: PHARMACY COMMENTS MC SCH (06:17)
[2017-09-04 06:24] LABS: BASOPHILS # (AUTO) 0.1 K/uL (0.00-0.22); BASOPHILS % (AUTO) 0.6 % (0.0-2.0); EOSINOPHILS # (AUTO) 0.8 K/uL (0-0.4); EOSINOPHILS % (AUTO) 5.1 % (0.0-4.0); HEMATOCRIT 24.9 % (36-48); HEMOGLOBIN 7.9 g/dL (12.0-16.0); LYMPHOCYTES # (AUTO) 2.1 K/uL (2.5-16.5); LYMPHOCYTES % (AUTO) 13.6 % (20.5-51.1); MEAN CORPUSCULAR HEMOGLOBIN 27 pg (27-31); MEAN CORPUSCULAR HGB CONC 32 g/dL (33-37); MEAN CORPUSCULAR VOLUME 84 fL (80-94); MONOCYTES # (AUTO) 0.8 K/uL (0.8-1.0); MONOCYTES % (AUTO) 5.3 % (1.7-9.3); NEUTROPHILS # (AUTO) 11.6 K/uL (1.8-7.7); NEUTROPHILS % (AUTO) 75.4 % (42.2-75.2); PLATELET COUNT (AUTO) 360 K/uL (140-450); RED BLOOD CELL COUNT(AUTO) 2.96 MIL/uL (4.20-5.40); RED CELL DISTRIBUTION WIDTH 16.3 % (11.6-13.7)
[2017-09-04 06:28] LABS: ANION GAP 11.2 (8-16); CARBON DIOXIDE 27.2 mmol/L (21-32); CREATININE 0.8 mg/dL (0.6-1.3); POTASSIUM 3.4 mmol/L (3.5-5.1)
[2017-09-04 06:33] LABS: MAGNESIUM 1.8 mg/dL (1.8-2.4); PHOSPHORUS 2.7 mg/dL (2.5-4.9)
--- NOTE | 2017-09-04 06:40 | NUR ---
SUCTIONED PT THROUGHOUT NIGHT, PT HAS A LOT OF SECRETIONS. LET DR HELLER KNOW ABOUT SECRETIONS AND THAT I FELT A LITTLE RESISTANCE ON THE GTUBE.
[2017-09-04 06:49] LABS: WHITE BLOOD COUNT (AUTO) 15.4 K/uL (4.8-10.8)
[2017-09-04] MEDS: BLOOD GLUCOSE MONITORING 1 DEV DEV FS SCH ×4 (06:50→20:39)
--- NOTE | 2017-09-04 07:09 | NUR ---
ENDORSED PT IN STABLE CONDITION TO DAY SHIFT RN FOR CONTINUITY OF CARE.
--- NOTE | 2017-09-04 07:10 | NUR ---
RECEIVED REPORT FROM SENIOR TALENT ACQUISITION SPECIALIST NURSE. PATIENT LYING IN BED SLEEPING, AROUSABLE BY VOICE. NO DISTRESS NOTED. FLACC 0. PATIENT TRACH TO VENTILATOR DEPENDENT WITH VENT SETTINGS: FIO2:40, RESP:12, VT:400, PEEP:5. AWAKE, APHASIC, NON-VERBAL. HAS SACRAL PRESSURE ULCER WITH DRESSING THAT IS DRY AND INTACT. PERINEAL REDNESS NOTED. GARCIA CATHETER IN PLACE, DRAINING CLEAR, YELLOW URINE. IV SITE INTACT, PATENT AND INFUSING IVF PER ORDERS. V/S STABLE, NO FEVER AT THIS TIME. GTUBE SITE INTACT, PATENT, AND GTUBE FEEDING ON CONTINUOUS PER ORDERS. LUNGS SOUNDS HAS WHEEZING/RHONCI. ABDOMEN SOFT, NON-DISTENDED. REVIEWED PLAN OF CARE WITH PATIENT, UNABLE TO COMPREHEND, REINFORCEMENT NEEDED. SAFETY MEASURES IN PLACE, CALL LIGHT WITHIN REACH, SEIZURE PRECAUTIONS IN PLACE, FALL PRECAUTIONS IN PLACE. WILL CONTINUE TO MONITOR.
[2017-09-04] MEDS: ALBUTEROL SULFATE/IPRATROPIU 3 ML SOL IH SCH ×3 (07:30→19:15)
--- NOTE | 2017-09-04 07:31 | NUR ---
RECEIVED ON A Doormen. CARESCAPE R860 VENTILATOR PLUGGED INTO RED OULTET TOLERATING WELL WITHOUT ADVERSE REACTIONS NOTED TO A PORTEX DCT #8 AIRWAY SECURED WITH A MARIANNE TRACH TIE CUF PRESSURE CHECKED NOTED AMBU BAG AT HOB LOC AWAKE STABLE NO PULMONARY DISTRESS NOTED BREATH SOUNDS COARSE RHONCHI BILATERAL WITH GOOD CHEST RISE DEEP TRACHEAL SUCTION FOR LARGE THIN YELLOW SECRETIONS AIRWAY PATENT
[2017-09-04] MEDS: METOPROLOL 50 MG TAB GT SCH ×2 (09:00→20:40)
[2017-09-04] MEDS: LACTOBACILLUS RHAMNOSUS GG 1 EACH CAP PO SCH (09:10)
[2017-09-04] MEDS: POTASSIUM CHLORIDE 20% 40 MEQ/15 ML UDC GT SCH (09:11)
[2017-09-04] MEDS: CALCIUM CARB/VIT-D 500 MG/200 IU 1 TAB GT SCH (09:11)
[2017-09-04] MEDS: DOCUSATE 100 MG/10 ML UDC GT SCH ×2 (09:11→20:40)
[2017-09-04] MEDS: SODIUM PHOS / POTASSIUM PHOS 1 PKT PDR PO SCH ×3 (09:12→16:12)
[2017-09-04] MEDS: MAGNESIUM OXIDE 400 MG TAB PO SCH (09:12)
[2017-09-04] MEDS: ASPIRIN 81 MG TAB.CHEW GT SCH (09:12)
[2017-09-04] MEDS: ATORVASTATIN 20 MG TAB PO SCH (09:12)
[2017-09-04] MEDS: levETIRAcetam 100 MG/ML ORASYR GT SCH ×2 (09:13→20:40)
[2017-09-04] MEDS: MULTIVITAMIN 5 ML ORASYR GT SCH (09:13)
[2017-09-04] MEDS: PSYLLIUM 12.2 GM/PKT GT SCH (09:27)
--- NOTE | 2017-09-04 09:40 | NUR ---
PATIENT LYING IN BED COMFORTABLY. NO DISTRESS NOTED. FLACC 0. SCHEDULED MEDICATIONS DUE GIVEN. PATIENT TOLERATED WELL. ASSISTED TRIMMING PRESS OPERATOR IN REPOSITIONING AND CLEANING PATIENT. SAFETY MEASURES IN PLACE, CALL LIGHT WITHIN REACH. WILL CONTINUE TO MONITOR.
[2017-09-04] MEDS: SKINTEGRITY HYDROGEL TP SCH (09:42)
[2017-09-04] MEDS: FUROSEMIDE 20 MG/2 ML VIAL IVP SCH ×2 (09:43→20:41)
--- NOTE | 2017-09-04 09:50 | NUR ---
VENT CHECK COMPLETED. PT SUCTIONED OBTAINED SMALL AMOUNT OF THIN WHITE SECRETIONS, AIRWAY IS PATENT AND TRACH REMAINS SECURE.
[2017-09-04] MEDS ORDERED: KCL 20 MEQ/WATER INJ PREMIX 100 ML IV SCH (10:00)
--- NOTE | 2017-09-04 10:35 | NUR ---
SPEECH LANGUAGE PATHOLOGY ASSISTANT AT BEDSIDE FOR PATIENT PHYSICAL HYGIENE, BED LINEN CHANGE AND PATIENT REPOSITION LOC AWAKE BREATH SOUNDS RHONCHI BILATERAL WITH GOOD CHEST RISE DEEP TRACHEAL SUCTION FOR MODERATE THIN YELLOW SECRETIONS AIRWAY PATENT MASIMO RADICAL-7 CONTINUOS PULSE OXIMETRY AT BEDSIDE ON AND FUNCTIONING WELL LOW SATURATION ALARM SET AT 90%
--- NOTE | 2017-09-04 10:50 | NUR ---
ROLL FORMING MACHINE SET UP MECHANIC CALLED TO ME[facility]HAN BY DALTON/JOHNNA FOR DECLINING SATURATION AT 84% LOC AWAKE BREATH SOUNDS COARSE RHONCHI BILATERAL DEEP TRCAHEAL SUCTION FOR LARGE THIN PALE YELLOW SECRETIONS AIRWAY PATENT
--- NOTE | 2017-09-04 10:58 | NUR ---
SATURATION 98% ON FIO2 OF 30% DALTON/RN AT BEDSIDE AWARE
--- NOTE | 2017-09-04 11:45 | NUR ---
PATIENT LYING IN BED SLEEPING, AROUSABLE BY VOICE. NO DISTRESS NOTED. FLACC 0. CONDITION UNCHANGED. SAFETY MEASURES IN PLACE, CALL LIGHT WITHIN REACH. WILL CONTINUE TO MONITOR.
--- NOTE | 2017-09-04 11:55 | NUR ---
REVIEWED [facility] SAMPLE REPORT PO2 62.2 mmHg INCREASED FIO2 TO 40% DALTON/RN NOTIFIED
--- NOTE | 2017-09-04 12:00 | NUR ---
09/04/17 RD FOLLOW UP COMPLETED PLEASE REFER TO NUTRITION PROGRESS NOTE UNDER CARE ACTIVITY FOR ESTIMATED NUTRITION NEEDS. RD RECOMMENDATIONS: 1. CONTINUE FIBERSOURCE HN @60ML/HR VIA G TUBE FROM NOON TO 8AM (X 20 HOURS) WITH 200 ML OF FREE WATER FLUSH Q6H + PROSOURCE 1 PACK DAILY. -CURRENT TUBE FEEDING IS ADEQUATE TO PROVIDE 100% OF ESTIMATED ENERGY AND PROTEIN NEEDS. 2. RD WILL F/U 2-3 DAYS; HIGH RISK. HANNA ROSS, ABHISHEK
[2017-09-04] MEDS: cefTAZidime 2,000 MG in DEXTROSE 5% 100 ML IV SCH ×2 (13:10→20:41)
--- NOTE | 2017-09-04 13:11 | NUR ---
AWAKE RESTING COMFORTABLY WITH NO APPARENT SOB NOTED BREATH SOUNDS RHONCHI BILATERAL GOOD CHEST RISE DEEP TRACHEAL SUCTION FOR SMALLL THIN YELLOW SECRETIONS AIRWAY PATENT
--- NOTE | 2017-09-04 13:13 | NUR ---
PATIENT LYING IN BED COMFORTABLY. NO DISTRESS NOTED. FLACC 0. CONDITION UNCHANGED. SCHEDULED MEDICATIONS DUE GIVEN. RESPIRATORY THERAPIST AT BEDSIDE FOR BREATHING TREATMENT. SAFETY MEASURES IN PLACE, CALL LIGHT WITHIN REACH, SEIZURE PRECAUTIONS IN PLACE. WILL CONTINUE TO MONITOR.
--- NOTE | 2017-09-04 15:24 | NUR ---
NO PULMONARY DISTRESS NOTED GOOD CHEST RISE DEEP TRCAHEAL SUCTION FOR SMALL THIN YELLOW SECRETIONS AIRWAY PATENT
--- NOTE | 2017-09-04 16:20 | NUR ---
PATIENT LYING IN BED COMFORTABLY. NO DISTRESS NOTED. FLACC 0. VENTILATOR SETTINGS UNCHANGED. SCHEDULED MEDICATIONS DUE GIVEN. SAFETY MEASURES IN PLACE, CALL LIGHT WITHIN REACH. WILL CONTINUE TO MONITOR.
--- NOTE | 2017-09-04 17:45 | NUR ---
AWAKE STABLE NO EVIDENCE OF RESPIRATORY DISTRESS NOTED BREATH SOUNDS DIFFUSED RHONCHI BILATERAL WITH GOOD CHEST RISE DEEP TRACHEAL SUCTION FOR SMALL THIN YELLOW SECRETIONS NOTED AIRWAY PATENT
--- NOTE | 2017-09-04 18:39 | NUR ---
PATIENT LYING IN BED SLEEPING, NO DISTRESS NOTED. FLACC 0. VENTILATOR SETTINGS UNCHANGED. CONDITION UNCHANGED. SAFETY MEASURES IN PLACE, CALL LIGHT WITHIN REACH. WILL CONTINUE TO MONITOR.
--- NOTE | 2017-09-04 19:15 | NUR ---
GAVE REPORT TO ELECTRONIC INDUCTION HARDENER NURSE FOR CONTINUITY OF CARE. PATIENT IN STABLE CONDITION.
--- NOTE | 2017-09-04 19:30 | NUR ---
RECEIVED REPORT FROM DAY SHIFT NURSE. PATIENT LYING IN BED AWAKE ALERT APHASIC. NO DISTRESS NOTED. FLACC 0. TRACH TO VENTILATOR DEPENDENT WITH VENT SETTINGS: FIO2:40, RESP:12, VT:400, PEEP:5. SACRAL DRESSING DRY AND INTACT. PERINEAL REDNESS NOTED. GARCIA CATHETER IN PLACE, DRAINING YELLOW URINE BY GRAVITY. IV INTACT AND PATENT, INFUSING IVF AT 75ML/HR. V/S STABLE, NO FEVER AT THIS TIME. G-TUBE IN PLACE INTACT AND PATENT, FEEDING ON CONTINUOUS 60ML/HR. PLAN OF CARE DISCUSSED, UNABLE TO COMPREHEND, REINFORCEMENT NEEDED. SAFETY MEASURES IN PLACE, HEAD OF BED ELEVATED, CALL LIGHT WITHIN REACH, SEIZURE PRECAUTIONS IN PLACE, WILL CONTINUE TO MONITOR. Addendum: 09/05/17 at 0558 by Markell Garcia RN WOUND CARE BED ACTIVE
[2017-09-04] MEDS: FAMOTIDINE 20 MG/2 ML VIAL IV SCH (20:40)
--- NOTE | 2017-09-04 20:55 | NUR ---
IV INFILTRATED, STATED NEW IV 22 ON LT FOREARM, PATIENT TOLERATED WELL. OLD IV TAKEN OUT, TIP INTACT, NO ACTIVE BLEEDING AT THE IV SITE. REPOSITIONED PATIENT WITH THE CERTIFIED SUBSTANCE ABUSE COUNSELOR, CALL LIGHT WITHIN REACH, SAFETY MEASURE ENSURED, WILL CONTINUE TO MONITOR.
--- NOTE | 2017-09-04 22:53 | NUR ---
REPOSITIONED PATIENT WITH THE TOP PRECIPITATOR OPERATOR, NANI CARE PROVIDED, PATIENT TOLERATED WELL. NO S/S OF DISTRESS NOTED, RESPIRATION EVEN AND UNLABORED WITH VENT. CALL LIGHT WITHIN REACH, SAFETY MEASURE ENSURED, WILL CONTINUE TO MONITOR.
[2017-09-05] VITALS: BP 128/77
--- NOTE | 2017-09-05 00:56 | NUR ---
VITAL SIGNS STABLE, REPOSITIONED PATIENT WITH ANOTHER RN, PATIENT TOLERATED WELL. NO S/S OF DISTRESS NOTED, RESPIRATION EVEN AND UNLABORED, ORAL CARE PROVIDED, CALL LIGHT WITHIN REACH, HEAD OF BED ELEVATED, SAFETY MEASURE ENSURED, WILL CONTINUE TO MONITOR.
[2017-09-05] MEDS: HYDRAGUARD CREAM TP SCH ×2 (01:13→09:00)
--- NOTE | 2017-09-05 02:02 | NUR ---
REPOSITIONED PATIENT WITH THE BEAN DUMPER, PATIENT TOLERATED WELL, NO S/S OF DISTRESS NOTED, CALL LIGHT WITHIN REACH, SAFETY MEASURE ENSURED, HEAD OF BED ELEVATED, WILL CONTINUE TO MONITOR.
[2017-09-05 04:00] VITALS: BP 100/65
--- NOTE | 2017-09-05 04:31 | NUR ---
NO CHANGE IN CONDITION, VITAL SIGNS STABLE, RESPIRATION EVEN AND UNLABORED WITH VENT, REPOSITIONED PATIENT WITH THE LEASING ASSISTANT, CALL LIGHT WITHIN REACH, SAFETY MEASURE ENSURED, WILL CONTINUE TO MONITOR.
[2017-09-05] MEDS: cefTAZidime 2,000 MG in DEXTROSE 5% 100 ML IV SCH ×2 (05:33→11:27)
[2017-09-05] MEDS: NACL 0.9% 1,000 ML IV SCH (05:34)
[2017-09-05] MEDS: LEVOTHYROXINE 0.025 MG TAB GT SCH (05:34)
[2017-09-05] MEDS: LEVOTHYROXINE 0.1 MG TAB GT SCH (05:35)
--- NOTE | 2017-09-05 05:56 | NUR ---
DUE MEDICATION GIVEN, PATIENT TOLERATED WELL. HEAD OF BED ELEVATED, ORAL CARE PROVIDED, PATIENT RESTING IN BED, S/S OF DISTRESS NOTED, CALL LIGHT WITHIN REACH, SAFETY MEASURE ENSURED, WILL CONTINUE TO MONITOR.
[2017-09-05] MEDS: BLOOD GLUCOSE MONITORING 1 DEV DEV FS SCH ×2 (06:33→12:16)
[2017-09-05] MEDS: ALBUTEROL SULFATE/IPRATROPIU 3 ML SOL IH SCH (07:02)
--- NOTE | 2017-09-05 07:11 | NUR ---
RECEIVED TRACH PT WITH A PORTEX 8 TRACH ON VENT. SETTINGS AC 12, VT 400, PEEP 5 AND FIO2 40%. PT SUCTIONED OBTAINED SMALL AMOUNT OF THICK WHITE SECRETIONS, AIRWAY IS PATENT. VENT IS PLUGGED INTO A RED OUTLET WITH ALARMS ON AND FUNCTIONING. PT IS NOT AWAKE BUT IS NOT SOB AND NOT IN RESPIRATORY DISTRESS. WILL CONTINUE TO MONITOR.
--- NOTE | 2017-09-05 07:20 | NUR ---
ENDORSED PLAN OF CARE TO DAY SHIFT, PATIENT IS IN STABLE CONDITION. NO S/S OF DISTRESS NOTED.
--- NOTE | 2017-09-05 07:21 | NUR ---
RECEIVED REPORT FROM CARPET RENOVATOR NURSE ASHLEY AT BEDSIDE FOR CONTINUITY OF CARE. PT IS APHASIC AND AWAKE. INTRODUCED SELF AND UPDATED BOARD. ON TRACH TO VENT. O2 SAT 100%. SKIN WARM AND DRY. IV TO L FA 22G. WITH NS INFUSING AT 75ML/HR. G-TUBE AT 60ML/HR. HOB 30 DEGREES. NO SIGNS OF DISTRESS. BED IN LOW POSITION, WHEELS LOCKED. CALL LIGHT WITHIN REACH. WILL CONTINUE TO MONITOR.
[2017-09-05 08:00] VITALS: BP 117/46
[2017-09-05] MEDS: SKINTEGRITY HYDROGEL TP SCH (09:00)
[2017-09-05] MEDS: POTASSIUM CHLORIDE 20% 40 MEQ/15 ML UDC GT SCH (09:07)
[2017-09-05] MEDS: levETIRAcetam 100 MG/ML ORASYR GT SCH (09:11)
[2017-09-05] MEDS: DOCUSATE 100 MG/10 ML UDC GT SCH (09:13)
[2017-09-05] MEDS: MULTIVITAMIN 5 ML ORASYR GT SCH (09:13)
[2017-09-05] MEDS: MAGNESIUM OXIDE 400 MG TAB PO SCH (09:14)
[2017-09-05] MEDS: CALCIUM CARB/VIT-D 500 MG/200 IU 1 TAB GT SCH (09:14)
[2017-09-05] MEDS: ASPIRIN 81 MG TAB.CHEW GT SCH (09:14)
[2017-09-05] MEDS: LACTOBACILLUS RHAMNOSUS GG 1 EACH CAP PO SCH (09:15)
[2017-09-05] MEDS: ATORVASTATIN 20 MG TAB PO SCH (09:15)
[2017-09-05] MEDS: METOPROLOL 50 MG TAB GT SCH (09:15)
[2017-09-05] MEDS: PSYLLIUM 12.2 GM/PKT GT SCH (09:16)
[2017-09-05] MEDS: SODIUM PHOS / POTASSIUM PHOS 1 PKT PDR PO SCH (09:16)
[2017-09-05] MEDS: FUROSEMIDE 20 MG/2 ML VIAL IVP SCH (09:18)
--- NOTE | 2017-09-05 10:00 | NUR ---
ADMINISTERED SCHEDULED MEDS. PT TOLERATED WELL. FLUSHED G-TUBE WITH 250 ML WATER. CHANGED SACRAL WOUND DRESSING. NO DRAINAGE OR ODOR NOTED. DRESSING DRY AND INTACT. REPOSITIONED PT TO RIGHT SITE. SUCTIONED TRACH AND ORAL SECRETIONS. HOB 30 DEGREES. NO SIGNS OF DISTRESS. WILL CONTINUE TO MONITOR.
[2017-09-05] MEDS ORDERED: CEFT2PDS66 IV (10:11)
--- NOTE | 2017-09-05 10:33 | NUR ---
CLARIFIED WITH [facility] [place] LOLY PINEDA REGARDING PT'S ROOM NUMBER COMING BACK TO [facility] [place] AND STATED THAT PT IS GOING TO ROOM 26-A NOT ROOM 11-C. LARUA OROPEZA IN CHARGE NOTIFIED.
--- NOTE | 2017-09-05 10:55 | NUR ---
PT SUCTIONED OBTAINED MODERATE AMOUNT OF THICK WHITE SECRETIONS. AIRWAY IS PATENT AND TRACH REMAINS SECURE. PT NOT SOB AND NOT IN ANY DISTRESS AT THIS TIME. WILL CONTINUE TO MONITOR.
--- NOTE | 2017-09-05 11:00 | NUR ---
SPOKE WITH ELSIE FROM [facility], PT WILL BE PICKED UP AT 1200 HRS VIA [facility] WITH [facility] ([facility])TRANSPORT. FACE SHEET AND MEDICARE FORM FAXED TO [facility]. LAURA OROPEZA NOTIFIED.
--- NOTE | 2017-09-05 11:23 | NUR ---
CALLED [facility] [place] [phone] AND GAVE REPORT TO MIRIAM. PT WILL GO TO ROOM 26-A. RN AWARE OF LICENSED PSYCHIATRIC TECHNICIAN TIME 12PM. GAVE CALL BACK NUMBER [phone]
--- NOTE | 2017-09-05 11:45 | NUR ---
PT SUCTIONED OBTAINED SMALL AMOUNT OF FROTHY THIN WHITE SECRETIONS. TRACH IS SECURE WITH A PATENT AIRWAY. PT IS NOT SOB AND NOT DEMONSTRATING ANY SIGNS/SYMPTOMS OF RESPIRATORY DISTRESS.
--- NOTE | 2017-09-05 12:14 | NUR ---
CALLED PT'S SON BRENDEN COLE [phone] AND NOTIFIED OF TRANSFER BACK TO [facility] [place] ROOM 26A.
--- NOTE | 2017-09-05 12:20 | NUR ---
PT D/C FOR TRANSFER TO [facility] [place]. D/C INSTRUCTIONS AND FORMS GIVEN. PT UNABLE TO SIGN FORMS. REMOVED ID BANDS AND TELE MONITOR. D/C G-TUBE FEEDING. G-TUBE SITE INTACT. D/C IV INFUSION. IV TO L FA 22G SITE INTACT AND SL. GARCIA CATHETER IN PLACE. 975ML URINE OUTPUT NOTED. REPORT GIVEN TO [facility] TRANSPORTER FOR [facility] TRANSFER. PT LEFT IN STABLE CONDITION.
== END 2017-09-05 12:20 | disposition home or self-care (01) | DRG 870 ==
LOC: MED 14:46 → MTU 18:07 → UNDOADMIN 18:07
PROVIDERS: ADMIT Family Medicine Sports Medicine; ATTEND Family Medicine Sports Medicine
PROC: 5A1955Z Respiratory Ventilation, Greater than 96 Consecutive Hours (ICD-10-PCS; principal; 2017-08-24)
DX: A41.9 Sepsis, unspecified organism (principal); J96.21 Acute and chronic respiratory failure with hypoxia; J69.0 Pneumonitis due to inhalation of food and vomit; G82.50 Quadriplegia, unspecified; N17.0 Acute kidney failure with tubular necrosis; E43 Unspecified severe protein-calorie malnutrition; G93.41 Metabolic encephalopathy; J15.6 Pneumonia due to other Gram-negative bacteria; G93.1 Anoxic brain damage, not elsewhere classified; L89.151 Pressure ulcer of sacral region, stage 1; I50.43 Acute on chronic combined systolic (congestive) and diastolic (congestive) heart failure; Z99.11 Dependence on respirator [ventilator] status; D68.59 Other primary thrombophilia; N39.0 Urinary tract infection, site not specified; J44.0 Chronic obstructive pulmonary disease with (acute) lower respiratory infection; E87.0 Hyperosmolality and hypernatremia; Z66 Do not resuscitate; E11.65 Type 2 diabetes mellitus with hyperglycemia; B96.4 Proteus (mirabilis) (morganii) as the cause of diseases classified elsewhere; D63.8 Anemia in other chronic diseases classified elsewhere; E03.9 Hypothyroidism, unspecified; E78.5 Hyperlipidemia, unspecified; E83.42 Hypomagnesemia; E87.6 Hypokalemia; F41.9 Anxiety disorder, unspecified; G40.909 Epilepsy, unspecified, not intractable, without status epilepticus; L30.4 Erythema intertrigo; E83.39 Other disorders of phosphorus metabolism; E11.51 Type 2 diabetes mellitus with diabetic peripheral angiopathy without gangrene; I70.209 Unspecified atherosclerosis of native arteries of extremities, unspecified extremity; Z79.4 Long term (current) use of insulin; Z93.1 Gastrostomy status; Z88.1 Allergy status to other antibiotic agents; Z68.25 Body mass index [BMI] 25.0-25.9, adult; Z93.0 Tracheostomy status
CPT/HCPCS: 36415; 36600; 71045; 80048; 80053; 81001; 82550; 82553; 82607; 82728; 82746; 82803; 82948; 83036; 83540; 83605; 83735; 83880; 84100; 84439; 84443; 84484; 85025; 85045; 85610; 85730; 87040; 87070; 87081; 87086; 87186; 87205; 89220; 93005; 93925; 93970; 94003; 94640; 96361; 96365; 99285; J0696; J0713; J1580; J1644; J1815; J1940; J1956; J2001; J2543; J2916; J3370; J3475; J3480; J3490; J7030; J7060; J7620; Q0092

== ENCOUNTER 2018-07-06 07:12 | Outpatient (CLI) | payer OTHER ==
[~2018-07-06 07:12] MED LIST changes: +ASPI81CT89 GT; +ATI.5 GT; +ATOR20TA40 PO; +CEFT2PDS66 IV; +D50SYR IVP; +GLUC-805 FS; +HYDGEL TP; +Hydraguard TP; +INSU100S45 SUBQ; +LACT10CA PO; +LAS20I IVP; +MAG400 GT; -MER500I IV; +METO25TA GT; +METPCK GT; +NYSTRC TP; -OMEP20EC6 GT; +PHOS1PDR4 PO; +POTA10TE30 GT; +TYL325S RC; +[UNRECOGNIZED DRUG - CODE] GT
== END 2018-07-06 19:46 | disposition home or self-care (01) ==
LOC: MCT 07:12
PROVIDERS: ATTEND Family Medicine
DX: M48.56XA Collapsed vertebra, not elsewhere classified, lumbar region, initial encounter for fracture (principal); R19.03 Right lower quadrant abdominal swelling, mass and lump; N20.1 Calculus of ureter; N28.1 Cyst of kidney, acquired; Q50.5 Embryonic cyst of broad ligament; J44.9 Chronic obstructive pulmonary disease, unspecified; E11.9 Type 2 diabetes mellitus without complications; I10 Essential (primary) hypertension; K21.9 Gastro-esophageal reflux disease without esophagitis; Z93.1 Gastrostomy status
CPT/HCPCS: 72193; Q9967

== ENCOUNTER 2019-02-24 15:06 | Inpatient (IN) | payer OTHER ==
[~2019-02-24] VITALS: Ht 152.4 cm; Wt 59.0 kg
[2019-02-24 15:06] VITALS: BP 114/46
[~2019-02-24 15:06] MED LIST changes: +ACET325S31 RC; +ASPI-1718 GT; -ASPI81CT89 GT; -TYL325S RC
--- NOTE | 2019-02-24 15:06 | NUR ---
PT BIBA [facility] TO ER BED 10
--- NOTE | 2019-02-24 15:07 | NUR ---
63 Y FEMALE SENT FROM [facility] C[facility] BY DR. BYRNES FOR FAILURE TO THRIVE AND TO HAVE PATIENT ADMITTED TO HOSPITAL FOR EXTUBATION AND ALLOW NATURAL . GTUBE PRESENT. TRACH. DEPENDENT ON VENT. HX CHRONIC RESPIRATORY FAILURE, HYPOXIA, CVA, COPD, EPILEPSY, QUADRIPLEGIA, HYPOTHYROIDISM, DM, CELLULITIS, DYSPHAGIA, PRESSURE ULCER BIG TOE, ENCEPHALITIS, ANOXIC BRAIN DAMAGE, GERD
--- NOTE | 2019-02-24 15:10 | NUR ---
VENT SETTINGS: TIDAL VOLUME 400 AC 12 PEEP 5 4 L
--- NOTE | 2019-02-24 15:11 | NUR ---
DR GALLO AT BEDSIDE
--- NOTE | 2019-02-24 15:20 | NUR ---
RECEIVED PT [facility] TEAM VIA AMBU BAG PLACED ON VENT WITH SETTINGS CHARTED BREATH SOUNDS PRESENT BILAY TRACH SITE SECURE SXN PT WITH MIN AMT OFF WHITE SECS AMBU BAG BEDSIDE VENT PLYUGGED INTO RED OUTLET WILL CONTINUE TO MONITOR PT ON VENT
[2019-02-24 15:24] VITALS: BP 114/46
[2019-02-24] MEDS ORDERED: LEVO0.114 GT (15:25)
[2019-02-24] MEDS ORDERED: FURO-572 GT (15:25)
[2019-02-24] MEDS ORDERED: INSU100S45 SUBQ (15:32)
[2019-02-24] MEDS ORDERED: POTA20LI41 GT (15:32)
[2019-02-24] MEDS ORDERED: MULT-1868 GT (15:32)
--- NOTE | 2019-02-24 15:43 | NUR ---
FAMILY PRESENT, DR GALLO SPEAKING WITH FAMILY
[2019-02-24] MEDS ORDERED: KEP500L GT (15:57)
[2019-02-24 16:29] LABS: BASOPHILS % (AUTO) 0.2 % (0.0-2.0); EOSINOPHILS % (AUTO) 8.8 % (0.0-4.0); HEMATOCRIT 34.2 % (36-48); HEMOGLOBIN 10.8 g/dL (12.0-16.0); LYMPHOCYTES # (AUTO) 2.4 K/uL (2.5-16.5); LYMPHOCYTES % (AUTO) 20.4 % (20.5-51.1); MEAN CORPUSCULAR HEMOGLOBIN 27 pg (27-31); MEAN CORPUSCULAR HGB CONC 32 g/dL (33-37); MEAN CORPUSCULAR VOLUME 85.9 fL (80-94); MONOCYTES # (AUTO) 0.9 K/uL (0.8-1.0); NEUTROPHILS # (AUTO) 7.3 K/uL (1.8-7.7); NEUTROPHILS % (AUTO) 62.6 % (42.2-75.2); PLATELET COUNT (AUTO) 261 K/uL (140-450); RED BLOOD CELL COUNT(AUTO) 3.98 MIL/uL (4.20-5.40); WHITE BLOOD COUNT (AUTO) 11.7 K/uL (4.8-10.8)
[2019-02-24 16:43] LABS: ANION GAP 10.6 (8-16); CARBON DIOXIDE 32.5 mmol/L (21-32); CREATININE 0.7 mg/dL (0.6-1.3); POTASSIUM 4.1 mmol/L (3.5-5.1)
[2019-02-24 16:48] LABS: ALBUMIN 2.7 g/dL (3.4-5.0); TOTAL BILIRUBIN 0.3 mg/dL (0.0-1.0)
--- NOTE | 2019-02-24 17:27 | NUR ---
# 14 FR Urinary catheter inserted utilizing sterile technique. Immediate return of 100 ml YELLOW urine noted. Urine sample collected and sent to lab. Pt tolerated procedure WELL.
[2019-02-24 17:57] LABS: APPEARANCE,URINE CLOUDY (CLEAR); COLOR,URINE YELLOW (YELLOW)
[2019-02-24 17:58] LABS: BILIRUBIN,URINE NEGATIVE (NEGATIVE); BLOOD, URINE 1+ (NEGATIVE); LEUKOCYTE ESTERASE ,URINE 3+ (NEGATIVE); NITRITE, URINE NEGATIVE (NEGATIVE); UGLUCOSE NEGATIVE (NEGATIVE)
[2019-02-24 18:01] LABS: WBC,URINE TOO MANY TO COUNT /HPF (0-5)
--- NOTE | 2019-02-24 18:26 | NUR ---
NO WOUNDS PRESENT ON PT
[2019-02-24] MEDS ORDERED: ONDANSETRON 4 MG/2 ML VIAL IM/IVP PRN (18:40)
[2019-02-24] MEDS ORDERED: FAMOTIDINE 20 MG/2 ML VIAL IV PRN (18:40)
[2019-02-24] MEDS ORDERED: DOCUSATE SODIUM 100 MG GELCAP PO PRN (18:40)
[2019-02-24] MEDS ORDERED: ACETAMINOPHEN 325 MG TAB PO PRN (18:40)
[2019-02-24] MEDS ORDERED: LORazepam 2 MG/ML VIAL IM/IVP PRN ×2 (18:40→20:55)
--- NOTE | 2019-02-24 18:46 | NUR ---
XRAY AT BEDSIDE
--- NOTE | 2019-02-24 19:14 | NUR ---
REPORT GIVEN TO RED OROPEZA
[2019-02-24 19:54] LABS: PROTHROMBIN TIME 9.5 secs (10.8-13.4)
--- NOTE | 2019-02-24 20:03 | NUR ---
(ED-10) RECEIVED ON A UB.SCAPE R860 VENTILATOR PLUGGED INTO RED OUTLET TOLERATING WELL WITHOUT ADVERSE REACTIONS NOTED TO A PORTEX DCT #8 AIRWAY SECURED WITH A TRACH TIE CUFF PRESSURE CHECKED NOTED AMBU BAG AT HOB LOC AWAKE BREATH SOUNDS COARSE RHONCHI BILATERAL WITH GOOD CHEST RISE DEEP TRACHEAL SUCTION FOR COPIOUS THICK WHITE SECRETIONS AIRWAY PATENT
[2019-02-24 20:06] LABS: FREE T4 (FREE THYROXINE) 1.13 ng/dL (0.76-1.46); MAGNESIUM 2.1 mg/dL (1.8-2.4); PHOSPHORUS 3.5 mg/dL (2.5-4.9); THYROID STIMULATING HORMONE 4.67 uIU/mL (0.34-3.74)
--- NOTE | 2019-02-24 20:06 | NUR ---
TRANSFERRED PATIENT FROM ER-10 TO [facility] 108-B PATIENT REMOVED FROM VENTILATOR PLACED ON SUPPLEMENTAL OXYGEN AT 15 LPM VIA E-TANK TO HME/INLINE SUCTION CATHETER/TRACHEOSTOMY TUBE BAG DEPRESSION EVERY 6-8 SECONDS TOLERATED TRANSFER WELL SATURATION 96%HR 101
[2019-02-24 20:15] VITALS: BP 110/53
--- NOTE | 2019-02-24 20:15 | NUR ---
RECEIVED PT FROM ANDREI PRASAD. PT NONVERBAL, SPONTANEOUSLY OPENS EYE TO NAME, ORIENTED X 0.BEDBOUND PLACED BY RT TO TRACH TO VENT W/ VENT SETTINGS : TV 400;AC 12; PEEP 5; 40% ; PT RESTING COMFORTABLY NO SOB NOTED GOOD CHEST RISE DEEP TRACHEAL SUCTION FOR MODERATE SEMI THICK TO FROTHY WHITE SECRETIONS AIRWAY PATENT.SUCTONED BY RT. PLACED IN LOW BED; HIGH BACK REST; FALL RISK PRECAUTION. CALL LIGHT W/IN EASY REACH
--- NOTE | 2019-02-24 20:16 | NUR ---
RESTING COMFORTABLY NO SOB NOTED GOOD CHEST RISE DEEP TRACHEAL SUCTION FOR MODERATE SEMI THICK TO FROTHY WHITE SECRETIONS AIRWAY PATENT
--- NOTE | 2019-02-24 20:20 | NUR ---
pT TRANSFERED TO ROOM 108B UNDER CARE OF DR. PAT FOR TERMINAL WEAN
--- NOTE | 2019-02-24 20:25 | NUR ---
REVIEWED PALLIATIVE EXTUBATION ORDER WITH DR. THERESA NEAL MD AWARE THAT POWER LINEWORKER WILL ONLY EXTUBATE TRACHEOSTOMY TUBE AFTER INITIATION OF MORPHINE SULFATE VIA IV
--- NOTE | 2019-02-24 21:14 | NUR ---
BREATH SOUNDS RHONCHI BILATERAL WITH GOOD CHEST RISE DEEP TRACHEAL SUCTION FOR MODERATE FROTHY TO SEMI THICK WHITE SECRETIONS OROPHARYNX SUCTION FOR COPIOUS CLEAR TO WHITE SECRETIONS AIRWAY PATENT FAMILY IN ROOM AT THIS BEDSIDE
[2019-02-24] MEDS ORDERED: MORPHINE SULFATE 100 MG in NACL 0.9% 100 ML IV SCH ×2 (21:45→22:00)
[2019-02-24] MEDS ORDERED: MORPHINE SULFATE 2 MG/ML SYR IVP PRN (22:25)
--- NOTE | 2019-02-24 22:36 | NUR ---
STARTED MORPHINE INFUSION AT 2236 MG. AWAITING PHARMACY TO VERIFY ORDERS OF 2MG BOLUS DOSE ORDER. WILL GIVE IV 2MG/ BOLUS SOON PHARMACY VERIFIED IT Addendum: 02/24/19 at 2249 by Abimbola Echavarria RN DR. GILLIS AWARE HE JUST PLACED IN THE ORDER FOR A 2 MG IV BOLUS NOW WITH THE START OF THE MORPHINE INFUSION
--- NOTE | 2019-02-24 22:37 | NUR ---
STARTED MORPHINE DRIP 7047 AND ADJUSTED RATE TO 2ML/HR PER ORDER PER PROTOCOL ON IV PUMP MG SO4 100MG/NS 100ML Addendum: 02/25/19 at 0546 by Abimbola Echavarria RN AMEND TO [id number]
--- NOTE | 2019-02-24 22:42 | NUR ---
PHARMACY CALLED VERIFIED THE ORDER OF 2 MG BOLUS
--- NOTE | 2019-02-24 23:03 | NUR ---
MORPHINE GIVEN [phone], ATIVAN GIVEN AT 2303
--- NOTE | 2019-02-24 23:24 | NUR ---
CALLED DR. GILLIS AND ANNA RT THAT PT READY TO BE EXTUBATED
--- NOTE | 2019-02-24 23:35 | NUR ---
PER MD ORDER FOR PALLIATIVE EXTUBATION ADVISED FAMILY MEMBERS (X3) OF EXTUBATION PROCEDURE WITH ACKNOWLEDGEMENT FROM NOAH. PATIENT PREPPED FOR THE FOREMENTIONED LOC AWAKE BREATH SOUNDS DIFFUSED RHONCHI BILATERAL WITH GOOD CHEST RISE DEEP TRACHEAL SUCTION FOR SMALL THIN WHITE SECRETIONS AIRWAY PATENT STOMA AREA SUCTIONED VIA YANKAUER AND WIPED WITH 4X4 GAUZE REMOVED FROM VENTILATOR/HME/INLINE SUCTION CATHETER DEFLATED CUFF ILLUSIONIST BALLOON FLAT GENTLY REMOVED TRACHEOSTOMY TUBE NO EVIDENCE OF TRAUMA PLACED ON A COOL AEROSOL AT 28%/6 LPM WITH TRACHEOSTOMY MASK TO STOMA REGION DR. THERESA GILLIS AND SHANIKA/JOHNNA NOTIFIED Addendum: 02/24/19 at 2351 by Bridger Blanco RT REMAINS ON CONTINUOS PULSE OXIMETER
--- NOTE | 2019-02-24 23:35 | NUR ---
PT EXTUBATED PER ORDER BY RT. DR. GILLIS AWARE. PER CALL HIM ONCE PT NEEDS A CODE
[2019-02-25] VITALS: BP 60/45
--- NOTE | 2019-02-25 00:16 | NUR ---
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 CC [id number]. FAMILY, NOAH ISRAEL WANTS ORGAN DONATION.
--- NOTE | 2019-02-25 00:40 | NUR ---
PT PRONOUNCED BY Soila ARROYO. NO FNS CONSULT AND WOUND CONSULT FOR LOW MELODY SCALE NEEDED.
--- NOTE | 2019-02-25 01:22 | NUR ---
[employer] FERNANDO RAMIREZ CALLED AT 0122 WITH [employer]'S CASE NO: [id number]; AND NOT A [employer]'S CASE; FOR RELEASE
--- NOTE | 2019-02-25 01:30 | NUR ---
CLEANED PT TOOK OUT ALL LINES AND WRAPPED HER IN BLANKETS W/ FIRE WATCHMAN TO ASSIST.
--- NOTE | 2019-02-25 02:34 | NUR ---
CALLED [facility]. SAID THEY WILL PICK PT UP 2 HRS FROM NOW
--- NOTE | 2019-02-25 03:10 | NUR ---
STUART OF [facility] CALLED AND FOLLOWED UP THE PT' FOR ORGAN COLLECTION AND ASKED IF [facility] HAS PICKED UP THE PT.INFORMED STUART THAT [facility] CALLED AT 0234 AND THAT THEY WILL PICK PT UP 2 HRS FROM SAID TIME.
--- NOTE | 2019-02-25 04:00 | NUR ---
SECURITY CALLED AND HE CAME TO THE UNIT WHEN [facility] ARRIVED AT THIS TIME
--- NOTE | 2019-02-25 04:15 | NUR ---
[facility] CAME AND PICKED UP PT; ESCORTED PT TO THE EXIT OF THE HOSPITAL
== END 2019-02-25 00:36 | disposition expired | DRG 689 ==
LOC: MED 15:06 → MTU 18:43
PROVIDERS: ADMIT General Practice; ATTEND General Practice
PROC: 5A1935Z Respiratory Ventilation, Less than 24 Consecutive Hours (ICD-10-PCS; principal; 2019-02-24)
DX: N39.0 Urinary tract infection, site not specified (principal); G82.50 Quadriplegia, unspecified; J96.10 Chronic respiratory failure, unspecified whether with hypoxia or hypercapnia; R62.7 Adult failure to thrive; I46.9 Cardiac arrest, cause unspecified; Z66 Do not resuscitate; J44.9 Chronic obstructive pulmonary disease, unspecified; G40.909 Epilepsy, unspecified, not intractable, without status epilepticus; E11.9 Type 2 diabetes mellitus without complications; E03.9 Hypothyroidism, unspecified; K21.9 Gastro-esophageal reflux disease without esophagitis; L89.159 Pressure ulcer of sacral region, unspecified stage; Z93.0 Tracheostomy status; Z68.25 Body mass index [BMI] 25.0-25.9, adult; Z88.8 Allergy status to other drugs, medicaments and biological substances; Z86.73 Personal history of transient ischemic attack (TIA), and cerebral infarction without residual deficits; Z79.82 Long term (current) use of aspirin; Z79.899 Other long term (current) drug therapy; Z93.1 Gastrostomy status
CPT/HCPCS: 36415; 71045; 80053; 81001; 82150; 83036; 83605; 83690; 83735; 83880; 84100; 84439; 84443; 85025; 85610; 85730; 87086; 93005; 94002; 99285; C1758; J2060; J2270; Q0092